=== PATIENT | female | born 1950 | race Caucasian/White ===

== ENCOUNTER 2016-05-13 18:36 | Emergency (ER) | payer OTHER ==
[~2016-05-13 18:36] MED LIST: ACCUNEB INH; ACETAMINOPHEN500 MG PO; ALBUTEROL 3 ML3 ML INH; ALBUTEROL1.25 MG/3 INH/SOL; ANTIVERT 25MG #1 PAC PO; ASPIR 8181 MG PO; ASPIRIN CHILDRE81 MG PO; ATORVASTATIN CA10 MG PO; AUGMENTIN 875 M1 TAB PO; AZELASTINE137 MCG/Ac NAS; BENZONATATE200 MG PO; BIAXIN FILMTAB500 MG PO; CALCIUM + D 5001 TAB PO; CEFDINIR300 M1 PO; CIPRO 500MG TA500 MG PO; CLINDAMYCIN HY300 MG PO; ECOTRIN81 MG PO; FLAG500 PO; FLAGYL500 MG PO; FLEXERIL 5MG TAB5 MG PO; FLONASE120 SPRAY/ NAS; HYCODAN 1.5 MG-1 TAB PO; HYGROTON 25MG T25 MG PO; KEFLEX250 M1 PO; LEVBID0.375 MG PO; LEVOTHYROXIN0.025 MG PO; LEVOTHYROXIN0.175 MG; LEVOTHYROXIN0.175 MG PO; LIORESAL 10MG T10 MG PO; LIPITOR10 MG PO; LOPRESSOR 25MG25 MG PO; LOSARTAN POTASS50 M1 PO; LOVAZA1 GM PO; MACROBID 100 M100 MG PO; MASON NATURAL325 MG PO; MEDROL4 M2 PO; METOPROLOL TART50 M1 PO; MIRALAX17 GM PO; MUCINEX ER600 MG PO; MUCINEX600 MG PO; Mucinex PO; NOVAPLUS V0.09 MG/Ac INH; OMNICEF300 MG PO; PEPCID20 MG PO; PREDNISONE 20MG20 MG PO; PREDNISONE10 MG PO; PROAIR HFA0.09 MG/Ac INH; PROTONIX 40MG T40 MG PO; PYRIDIUM200 M1 PO; ROBITUSSIN W/CO10 ML PO; SENNA CON/DOCUS1 TAB PO; STERAPRED DS10 MG PO; SUPRAX400 MG PO; SYMBICORT 160/41 PUF INH; Senokot S PO; TESSALON PERLE100 MG PO; VIBRAMYCIN 100100 MG PO; VITAB121000 PO; ZITHROMAX Z-PA250 M1 PO; ZOFRAN4 M1 SL; ZOFRAN4 M2 PO
[2016-05-13 19:20] VITALS: BP 128/82
--- NOTE | 2016-05-13 21:45 | ED UPPER/LOWER EXTREMITY COMPL ---
History of Present Illness General Chief Complaint: General Adult Stated Complaint: VINH ARTHRIS PAIN IN LEFT ARM RIGHT LEG Source: patient Exam Limitations: no limitations Vital Signs & Intake/Output Vital Signs & Intake/Output Vital Signs Date Time Temp Pulse Resp B/P Pulse O2 O2 Flow FiO2 Ox Delivery Rate 05/13 1920 98.6 67 16 128/82 96 Room Air ED Intake and Output 05/14 0000 05/13 1200 Intake Total 0 Output Total Balance 0 Intake, Oral 0 Allergies Coded Allergies: metronidazole (From FLAGYL) (Mild, hives 01/12/16) Penicillins (RASH 01/12/16) Sulfa (Sulfonamide Antibiotics) (HIVES 01/12/16) adhesive tape (RED, ITCHY 01/12/16) ciprofloxacin (From CIPRO) (HIVES 01/12/16) metoclopramide (From REGLAN) (PER PT DOES NOT REMEMBER 01/12/16) naproxen (PER PT DOESNT REMEMBER 01/12/16) oxycodone (RASH, BLOTCHES 01/12/16) promethazine (RASH, HIVES 01/12/16) sulfamethoxazole (From BACTRIM) (HIVES 01/12/16) sumatriptan (From IMITREX) (PT DOESNT REMEMBER 01/12/16) tramadol (FACIAL EDEMA 01/12/16) trimethoprim (From BACTRIM) (HIVES 01/12/16) Uncoded Allergies: ANTI-HISTAMINES (ACID REFLUX 03/01/15) Triage Note: TRIAGE; PT VINH FROM HOME WITH RT KNEE AND LT WRIST PAIN. PT STATES SHE HAS A HX OF ARTHRITIS. DENIES ANY INJURY TO THE AREA. PT TRIED USING HER ARTHRITIC CREAM WITH NO RELIEF. Triage Nurses Notes Reviewed? yes Onset: Gradual Duration: getting worse Timing: remote history Severity: severe Severity Numbers: 8 HPI: Patient is a 66-year-old female with a past medical history of arthritis who presents to emergency room with a 3 day history of gradual onset of left wrist right hip and right knee pain. Patient denies any mechanism injury denies any falls or repetitive motions. Patient states that she believes that her arthritis is "acting up on her". Denies any peripheral edema. Denies any paresthesia or weakness. Denies any erythema swelling or warmth. Patient has not taken any medications for symptom was brought in by ambulance for pain. Patient states that due to her arthritis she uses a cane with her left hand which makes her left wrist worse. (FLAKITA MARSHALL,GENARO) Reconcile Medications Albuterol Sulfate (Accuneb) 3 ML GRACIE 3 ML INH PRN RESPIRATORY (Reported) Albuterol Sulfate (Ventolin Hfa) 0.09 MG/Actuation GREGORY 1-2 PUFF INH Q6P PRN SOB Aspirin (Ecotrin) 81 MG ECT 1 TAB PO DAILY HEART/BLOOD (Reported) Atorvastatin Calcium (Lipitor) 10 MG TAB 1 TAB PO DAILY CHOLESTEROL (Reported ) Budesonide/Formoterol Fumara (Symbicort 160-4.5 Mcg Inhaler) 160 MCG/4.5 MCG PUF 2 PUF INH BID ASTHMA (Reported) Calcium/Vitamin D (Calcium + D) 500 MG/125 IU TAB 1 TAB PO BID SUPPLEMENT ( Reported) Cyanocobalamin (Vitamin B-12) 1,000 MCG TABLET 2 TAB PO DAILY VITAMIN SUPPLEMENT (Reported) Ferrous Sulfate 325 MG (65 MG IRON) TABLET 1 TAB PO BID SUPPLEMENT (Reported) Levothyroxine Sodium 0.175 MG TAB 1 TAB PO DAILY AC THYROID (Reported) Losartan Potassium 50 MG TABLET 1 TAB PO DAILY BP (Reported) Meloxicam (Mobic) 15 MG TABLET 1 TAB PO DAILY PRN PAIN/INFLAMMATION Metoprolol Tartrate 50 MG TABLET 1 TAB PO BID HEART (Reported) [id number] Ethyl Esters (Lovaza) 1 GRAM CAPSULE 2 CAP PO BID TRIGLYCERIDES (Reported) Ondansetron (Zofran Odt) 4 MG TAB.RAPDIS 1 TAB SL TID nausea Pantoprazole Sodium (Protonix) 40 MG TABLET.DR 1 TAB PO DAILY AC GI (Reported ) Polyethylene Glycol 3350 (Miralax) 17 GM PWD 17 GM PO DAILY GI (Reported) mix with water, juice, soda, coffee or tea Tylenol With Codeine (Tylenol With Codeine #3 Tablet) 300 MG-30 MG TABLET 1 TAB PO BIDP PRN PAIN (WESTON MONTALVO,DIONNA Fermin) Past History Travel History Traveled to [place] past 21 day No Medical History Any Pertinent Medical History? 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 No (GENARO SANDERS) Review of Systems Review of Systems Constitutional: Reports: no symptoms. EENTM: Reports: no symptoms. Respiratory: Reports: no symptoms. Cardiovascular: Reports: no symptoms. Gastrointestinal/Abdominal: Reports: no symptoms. Genitourinary: Reports: no symptoms. Musculoskeletal: Reports: see HPI, joint pain. Skin: Reports: no symptoms. Neurological/Psychological: Reports: no symptoms. Hematologic/Endocrine: Reports: no symptoms. Immunological: Reports: no symptoms. All Other Systems: Reviewed and Negative (GENARO SANDERS) Physical Exam Physical Exam General Appearance: no apparent distress, comfortable, obese Peripheral Pulses: 2+ radial (R), 2+ radial (L) Neurologic/Tendon: normal sensation, normal motor functions, normal tendon functions, responds to pain, no evidence tendon injury Skin: intact, normal color, warm/dry Comments: Well-developed well-nourished no apparent distress. HEENT: Atraumatic, extraocular motion intact Neck: Supple, no lymphadenopathy Back: Nontender Respiratory: No respiratory distress Extremities: Left elbow normal inspection nontender full active range of motion Left wrist normal inspection general point tenderness noted upon palpation, decreased active range of motion noted Left hand nontender no scaphoid tenderness Left upper extremity dermatomes intact Right hip normal inspection generalized point tenderness noted, full active range of motion noted Right knee normal inspection generalized point tenderness noted full active range of motion noted Normal gait Neuro: Alert and oriented x3 Psych: Mood affect normal, normal memory normal judgment. (GENARO SANDERS) Progress Differential Diagnosis: arterial insufficiency, compartment syndrome, contusion, dislocation, DVT, fracture, gout, septic arthritis, sprain, tendon injury, ARTHRITIS, GOUT Plan of Care: Patient at this time has no concerns of traumatic event denies any mechanism injury no signs of cellulitis or infection no concerns of septic arthritis. Patient was strongly advised to follow up with primary care doctor. Bacilio wrap was placed to right knee in which patient states that she had knee swelling none was appreciated in the emergency room. I sent this time has no traumatic event or mechanism which warrants an emergent x-ray (GENARO SANDERS) Departure Departure Disposition: HOME OR SELF CARE Condition: Stable Clinical Impression Primary Impression: Left wrist pain Secondary Impressions: Osteoarthritis, Right hip pain, Right knee pain Referrals: SUSAN QUEEN APRN (PCP/Family) Additional Instructions: As discussed began heating or icing the area 20 minutes every 2 hours for pain and inflammation. Begin a prescription of meloxicam for pain and inflammation. Begin the prescription Tylenol with Codeine for your pain. If no better on Thursday follow-up with her primary care doctor. If symptoms worsen return to the emergency room. Departure Forms: Customer Survey General Discharge Information Prescriptions: Current Visit Scripts Meloxicam (Mobic) 1 TAB PO DAILY PRN PAIN/INFLAMMATION #14 TAB Tylenol With Codeine (Tylenol With Codeine #3 Tablet) 1 TAB PO BIDP PRN PAIN #6 TAB (GENARO SANDERS)
[2016-05-13] MEDS ORDERED: MOBIC15 M1 PO (21:53)
[2016-05-13] MEDS ORDERED: TYLENOL WITH C1 EACH PO (21:53)
[2016-05-14] MEDS ORDERED: ZOFRAN ODT4 M1 SL (14:41)
== END 2016-05-13 22:10 ==
LOC: ERH 18:36
DX: M25.532 Pain in left wrist (principal); M25.551 Pain in right hip; M25.561 Pain in right knee; M19.90 Unspecified osteoarthritis, unspecified site

== ENCOUNTER 2016-05-14 10:51 | Emergency (ER) | payer OTHER ==
[~2016-05-14] VITALS: Ht 167.6 cm; Wt 127.0 kg
[~2016-05-14 10:51] MED LIST changes: +MOBIC15 M1 PO; +TYLENOL WITH C1 EACH PO
--- NOTE | 2016-05-14 11:40 | ED SYNCOPE COMPLAINT ---
History of Present Illness General Chief Complaint: General Adult Stated Complaint: NAUSEA S/P NEW MEDICINE Source: patient Exam Limitations: no limitations Vital Signs & Intake/Output Vital Signs & Intake/Output Vital Signs Date Time Temp Pulse Resp B/P Pulse O2 O2 Flow FiO2 Ox Delivery Rate 05/14 1416 98.8 65 18 147/69 95 Room Air 05/14 1058 97.6 70 24 110/63 96 Room Air Allergies Coded Allergies: metronidazole (From FLAGYL) (Mild, hives 01/12/16) Penicillins (RASH 01/12/16) Sulfa (Sulfonamide Antibiotics) (HIVES 01/12/16) adhesive tape (RED, ITCHY 01/12/16) ciprofloxacin (From CIPRO) (HIVES 01/12/16) metoclopramide (From REGLAN) (PER PT DOES NOT REMEMBER 01/12/16) naproxen (PER PT DOESNT REMEMBER 01/12/16) oxycodone (RASH, BLOTCHES 01/12/16) promethazine (RASH, HIVES 01/12/16) sulfamethoxazole (From BACTRIM) (HIVES 01/12/16) sumatriptan (From IMITREX) (PT DOESNT REMEMBER 01/12/16) tramadol (FACIAL EDEMA 01/12/16) trimethoprim (From BACTRIM) (HIVES 01/12/16) Uncoded Allergies: ANTI-HISTAMINES (ACID REFLUX 03/01/15) Reconcile Medications Albuterol Sulfate (Accuneb) 3 ML GRACIE 3 ML INH PRN RESPIRATORY (Reported) Albuterol Sulfate (Ventolin Hfa) 0.09 MG/Actuation GREGORY 1-2 PUFF INH Q6P PRN SOB Aspirin (Ecotrin) 81 MG ECT 1 TAB PO DAILY HEART/BLOOD (Reported) Atorvastatin Calcium (Lipitor) 10 MG TAB 1 TAB PO DAILY CHOLESTEROL (Reported ) Budesonide/Formoterol Fumara (Symbicort 160-4.5 Mcg Inhaler) 160 MCG/4.5 MCG PUF 2 PUF INH BID ASTHMA (Reported) Calcium/Vitamin D (Calcium + D) 500 MG/125 IU TAB 1 TAB PO BID SUPPLEMENT ( Reported) Cyanocobalamin (Vitamin B-12) 1,000 MCG TABLET 2 TAB PO DAILY VITAMIN SUPPLEMENT (Reported) Ferrous Sulfate 325 MG (65 MG IRON) TABLET 1 TAB PO BID SUPPLEMENT (Reported) Levothyroxine Sodium 0.175 MG TAB 1 TAB PO DAILY AC THYROID (Reported) Losartan Potassium 50 MG TABLET 1 TAB PO DAILY BP (Reported) Meloxicam (Mobic) 15 MG TABLET 1 TAB PO DAILY PRN PAIN/INFLAMMATION Metoprolol Tartrate 50 MG TABLET 1 TAB PO BID HEART (Reported) [id number] Ethyl Esters (Lovaza) 1 GRAM CAPSULE 2 CAP PO BID TRIGLYCERIDES (Reported) Ondansetron (Zofran Odt) 4 MG TAB.RAPDIS 1 TAB SL TID nausea Pantoprazole Sodium (Protonix) 40 MG TABLET.DR 1 TAB PO DAILY AC GI (Reported ) Polyethylene Glycol 3350 (Miralax) 17 GM PWD 17 GM PO DAILY GI (Reported) mix with water, juice, soda, coffee or tea Tylenol With Codeine (Tylenol With Codeine #3 Tablet) 300 MG-30 MG TABLET 1 TAB PO BIDP PRN PAIN Triage Note: PT CAME IN LAST NIGHT FOR LEFT WRIST AND RIGHT KNEE PAIN. PT WAS GIVEN MELOXICAM AND STATES SHE TOOK IT THIS MORNING AND VOMITED. PT STATES STILL HAS NAUSEA Triage Nurses Notes Reviewed? yes Timing: recent history HPI: 58-year-old female was here yesterday for left wrist pain. Patient has arthritis in her wrist. Patient was prescribed Tylenol with Codeine and meloxicam. Patient reports that this morning she took the meloxicam as well as Tylenol with Codeine. Patient reports that she became nauseous and vomited. Patient reports that she's for nausea since then and dizzy. Patient reports that she's had total with codeine many times before with no reaction. Denies any chest pain or shortness of breath. Denies any other associated symptoms at this time. (BARBY MORENO) Past History Travel History Traveled to [place] past 21 day No Medical History Any Pertinent Medical History? 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 No (BARBY MORENO) Review of Systems Review of Systems Constitutional: Reports: no symptoms. EENTM: Reports: no symptoms. Respiratory: Reports: no symptoms. Cardiovascular: Reports: no symptoms. GI: Reports: see HPI. Genitourinary: Reports: no symptoms. Musculoskeletal: Reports: no symptoms. Skin: Reports: no symptoms. Neurological/Psychological: Reports: no symptoms. All Other Systems: Reviewed and Negative (BARBY MORENO) Physical Exam Physical Exam General Appearance: well developed/nourished, no apparent distress, alert Head: atraumatic, normal appearance Eyes: Bilateral: normal appearance, EOMI. Ears, Nose, Throat: normal pharynx, normal ENT inspection Neck: normal inspection, full range of motion Respiratory: normal breath sounds, no respiratory distress Cardiovascular: regular rate/rhythm Back: normal inspection Extremities: normal inspection, normal range of motion Psychiatric: awake, alert, oriented x 3 Cranial Nerves: normal hearing, normal speech, PERRL Coordination/Gait: normal gait Motor/Sensory: no motor/sensory deficits Skin: intact, normal color Core Measures ACS in differential dx? No CVA/TIA Diagnosis: No Severe Sepsis Present: No Septic Shock Present: No (BARBY MORENO) Progress Differential Diagnosis: AMI, aortic dissection, aortic valve, drug induced syncope, hyperventilation, orthostatic syncope, other valvular disease, pacemaker malfunction, pericardial tamponade, pulmonary embolus, seizure, sick sinus syndrome, subarachnoid hem., TIA/CVA, vasodepressor syncope, ventricular tach/fib, medicationr eaction Plan of Care: Orders Procedure Date/time Status Add-on Test (ER Only) 05/14 1303 Active LIPASE 05/14 1200 Complete AMYLASE 05/14 1200 Complete TROPONIN LEVEL 05/14 1133 Complete COMPREHENSIVE METABOLIC PANEL 05/14 1133 Complete CBC WITHOUT DIFFERENTIAL 05/14 1133 Complete EKG 05/14 1133 Active Laboratory Tests 05/14/16 1200: Anion Gap 14, Estimated GFR 55 L, BUN/Creatinine Ratio 25.0, Glucose 106 H, Calcium 9.2, Total Bilirubin 1.9 H, AST 268 H, ALT 165 H, Alkaline Phosphatase 190 H, Troponin I < 0.01, Total Protein 6.4, Albumin 3.8, Globulin 2.6, Albumin/Globulin Ratio 1.5, Amylase < 30 L, Lipase 47, CBC w Diff NO MAN DIFF REQ, RBC 4.45, MCV 89.0, MCH 30.7, RDW 13.6, MPV 7.2 L, Gran % 80.3 H, Lymphocytes % 10.3 L, Monocytes % 9.0, Eosinophils % 0.4, Basophils % 0 L, Absolute Granulocytes 8.8 H, Absolute Lymphocytes 1.1 L, Absolute Monocytes 1.0 H, Absolute Eosinophils 0, Absolute Basophils 0, PUBS MCHC 34.5 Diagnostic Imaging: Viewed by Me: Ultrasound. Discussed w/RAD: Ultrasound. Radiology Impression: SERVICE DATE: 05/14/16 EXAM TYPE: US - US-LIMITED ABDOMEN EXAMINATION: US ABDOMEN LIMITED CLINICAL INFORMATION: Elevated LFTs. Vomiting.. COMPARISON: Abdominal ultrasound 03/26/2016, CT abdomen pelvis 2015 and abdominal ultrasound 08/16/2015. TECHNIQUE: Real-time imaging of the right upper quadrant abdominal viscera. Examination limited secondary to patient body habitus and overlying bowel gas. FINDINGS: PANCREAS: Overlying bowel gas limits evaluation of the pancreas. Minimal portions of the pancreas which were visualized were unremarkable. LIVER: The liver demonstrates normal size and contour. Mild diffusely increased liver echogenicity is nonspecific but most suggestive of hepatic steatosis. No focal lesion or intrahepatic biliary duct dilatation. GALLBLADDER: The gallbladder has been surgically removed. COMMON BILE DUCT: 0.9 cm in diameter. RIGHT KIDNEY: No hydronephrosis. No renal calculi or focal parenchymal lesions. The kidney measures 11.0 cm in maximum dimension. FREE FLUID: None. IMPRESSION: 1. Mild diffusely increased liver echogenicity is nonspecific but most suggestive of hepatic steatosis. 2. The common bile duct measures 9 mm in diameter. This is a stable finding and likely within normal limits given history of cholecystectomy. DICTATED BY: CORINA LEE MD DATE/ TIME DICTATED:05/14/16 1343 Comments: 05/14/2016 3:46:24 PM Patient clinically looks well. Nontoxic-appearing. In no apparent distress. Resting comfortably on stretcher. No abdominal pain. No fever here. No suspicion for cholangitis at this time. Patient has some elevated LFTs which are new. Patient needs to have these followed by her GI dr. Case discussed with Dr. recinos. Patient feels absolutely fine upon discharge is asymptomatic and wants to go home. Patient requesting to eat food. I feel that the patient had an adverse reaction to the meloxicam. Patient has had Tylenol with Codeine in the past with no reaction. I feel that the blood work abnormalities are nonspecific finding and can be followed up as an outpatient. Patient agrees with my plan of care. (SYLWIA MARSHALL,BARBY) Departure Departure Disposition: HOME OR SELF CARE Condition: Stable Clinical Impression Primary Impression: Adverse reaction to drug Secondary Impressions: Elevated liver function tests Referrals: SUSAN QUEEN APRN (PCP/Family) Additional Instructions: Take Zofran ODT as prescribed. Have your liver function test retested by ear GI doctor. Return if any high fever, abdominal pain, persistent vomiting, or any other concerns. Please go over all results of today's visit with your primary care doctor. Contact your primary care doctor to let them know you were here in the emergency room. There may be nonspecific findings which may not be related to your visit today here in the emergency room but may require further evaluation and chronic monitoring by your primary care doctor. If you had a laceration today the chance of foreign body always remains. You should follow-up with your primary care doctor for recheck in 3-5 days for a wound check. If you had an x-ray done there is a chance that a fracture could have been missed on initial read and you should follow-up with your primary care doctor for repeat x-rays if symptoms persist. If your blood pressure was elevated here in the emergency room please have rechecked by her primary care doctor within the next 48 hours by your primary care doctor. If you were prescribed a narcotic here in the emergency room or any type of controlled substances you're not allowed to drive while taking this medication or operate any type of heavy machinery. Narcotics can make you feel lightheaded dizziness nausea and can cause constipation. You may need to fern picker a stool softener. Thank you for choosing [facility] emergency room. Please return to the emergency room immediately if you have any other concerns worsening of symptoms. Departure Forms: Customer Survey General Discharge Information Prescriptions: Current Visit Scripts Ondansetron (Zofran Odt) 1 TAB SL TID #15 TAB (BARBY MORENO) PA/HOME HEALTH TRAVEL PT Co-Sign Statement Statement: ED Attending supervision documentation- [X] I saw and evaluated the patient. I have also reviewed all the pertinent lab results and diagnostic results. I agree with the findings and the plan of care as documented in the PA's/HOME HEALTH TRAVEL PT's documentation. [X] I have reviewed the ED Record and agree with the PA's/HOME HEALTH TRAVEL PT's documentation. [] Additions or exceptions (if any) to the PAs/HOME HEALTH TRAVEL PT's note and plan are summarized below: [] (PAIGE MONTALVO,DENICE)
[2016-05-14 12:12] LABS: ABSOLUTE BASOPHIL COUNT 0 /CUMM (0.0-0.2); ABSOLUTE EOSINOPHIL COUNT 0 /CUMM (0.0-0.7); ABSOLUTE GRANULOCYTE CT 8.8 /CUMM (1.4-6.5); ABSOLUTE LYMPH COUNT 1.1 /CUMM (1.2-3.4); BASOPHIL % 0 % (0.0-2.0); EOSINOPHIL % 0.4 % (0-5); GRANULOCYTE % 80.3 % (42.2-75.2); HEMATOCRIT 39.5 % (37-47); MEAN CORPUSCULAR HGB 30.7 PG (27.0-31.0); MEAN CORPUSCULAR HGB CONC 34.5 G/DL (33.0-37.0); MEAN PLATELET VOLUME 7.2 FL (7.4-10.4); PLATELET COUNT 262 /CUMM (130-400); RBC DISTRIBUTION WIDTH 13.6 % (11.5-14.5); RED BLOOD CELL CT 4.45 /CUMM (4.20-5.40); WHITE BLOOD CELL COUNT 10.9 /CUMM (4.8-10.8)
--- NOTE | 2016-05-14 13:50 | ULTRASOUND REPORT ---
EXAMINATION: US ABDOMEN LIMITED CLINICAL INFORMATION: Elevated LFTs. Vomiting.. COMPARISON: Abdominal ultrasound 03/26/2016, CT abdomen pelvis 12/11/2015 and abdominal ultrasound 08/16/2015. TECHNIQUE: Real-time imaging of the right upper quadrant abdominal viscera. Examination limited secondary to patient body habitus and overlying bowel gas. FINDINGS: PANCREAS: Overlying bowel gas limits evaluation of the pancreas. Minimal portions of the pancreas which were visualized were unremarkable. LIVER: The liver demonstrates normal size and contour. Mild diffusely increased liver echogenicity is nonspecific but most suggestive of hepatic steatosis. No focal lesion or intrahepatic biliary duct dilatation. GALLBLADDER: The gallbladder has been surgically removed. COMMON BILE DUCT: 0.9 cm in diameter. RIGHT KIDNEY: No hydronephrosis. No renal calculi or focal parenchymal lesions. The kidney measures 11.0 cm in maximum dimension. FREE FLUID: None. IMPRESSION: 1. Mild diffusely increased liver echogenicity is nonspecific but most suggestive of hepatic steatosis. 2. The common bile duct measures 9 mm in diameter. This is a stable finding and likely within normal limits given history of cholecystectomy.
[2016-05-14 14:16] VITALS: BP 147/69
[2016-05-14] MEDS ORDERED: ZOFRAN ODT4 M1 SL (14:41)
== END 2016-05-14 14:59 ==
LOC: ERH 10:51
PROVIDERS: Physician Assistant Medical
DX: T39.95XA Adverse effect of unspecified nonopioid analgesic, antipyretic and antirheumatic, initial encounter (principal); R79.89 Other specified abnormal findings of blood chemistry; R42 Dizziness and giddiness
CPT/HCPCS: 93005; 93010; J3101

== ENCOUNTER 2016-05-30 13:43 | Emergency (ER) | payer OTHER ==
[~2016-05-30] VITALS: Ht 167.6 cm; Wt 127.0 kg
[~2016-05-30 13:43] MED LIST changes: +ZOFRAN ODT4 M1 SL
[2016-05-30] MEDS ORDERED: MEDROL4 M2 PO (16:34)
[2016-05-30] MEDS ORDERED: ZITHROMAX250 M2 PO (16:34)
[2016-05-30] MEDS ORDERED: TESSALON PERLE100 M1 PO (16:34)
--- NOTE | 2016-05-30 16:34 | ED GENERAL ADULT ---
History of Present Illness General Chief Complaint: Nausea, Vomiting, Diarrhea Stated Complaint: N/V/D HEAD COLD Source: patient Exam Limitations: no limitations Vital Signs & Intake/Output Vital Signs & Intake/Output Vital Signs Date Time Temp Pulse Resp B/P Pulse O2 O2 Flow FiO2 Ox Delivery Rate 05/30 1439 98.3 67 18 112/75 93 Room Air Allergies Coded Allergies: metronidazole (From FLAGYL) (Mild, hives 01/12/16) Penicillins (RASH 01/12/16) Sulfa (Sulfonamide Antibiotics) (HIVES 01/12/16) adhesive tape (RED, ITCHY 01/12/16) ciprofloxacin (From CIPRO) (HIVES 01/12/16) metoclopramide (From REGLAN) (PER PT DOES NOT REMEMBER 01/12/16) naproxen (PER PT DOESNT REMEMBER 01/12/16) oxycodone (RASH, BLOTCHES 01/12/16) promethazine (RASH, HIVES 01/12/16) sulfamethoxazole (From BACTRIM) (HIVES 01/12/16) sumatriptan (From IMITREX) (PT DOESNT REMEMBER 01/12/16) tramadol (FACIAL EDEMA 01/12/16) trimethoprim (From BACTRIM) (HIVES 01/12/16) Uncoded Allergies: ANTI-HISTAMINES (ACID REFLUX 03/01/15) Triage Note: C/O HEAD CONGESTION WITH COUGH, EAR PAIN AND SORE THROAT X 3 DAYS. ALSO C/O NAUSEA FROM POST NASAL DRAINAGE. Triage Nurses Notes Reviewed? yes Onset: Gradual Duration: day(s): (3) Timing: recent history Injury Environment: home Severity: moderate Severity Numbers: 8 No Modifying Factors: none HPI: Patient is a 66-year-old female presenting to the emergency department a chief complaint of upper respiratory congestion, sinus pain and pressure and dry cough that the going on for the past 3-4 days. History of asthma. She's been using her nebulizer without relief. Denies any chest pain or shortness of breath. Denies any abdominal pain. No nausea vomiting or diarrhea. Someone she lives with has similar symptoms. No travel. Denies recent antibiotic use. Positive the bilateral ear pain. (DENZEL MARSHALL,LEONORA) Reconcile Medications Albuterol Sulfate (Accuneb) 3 ML GRACIE 3 ML INH PRN RESPIRATORY (Reported) Albuterol Sulfate (Ventolin Hfa) 0.09 MG/Actuation GREGORY 1-2 PUFF INH Q6P PRN SOB Aspirin (Ecotrin) 81 MG ECT 1 TAB PO DAILY HEART/BLOOD (Reported) Atorvastatin Calcium (Lipitor) 10 MG TAB 1 TAB PO DAILY CHOLESTEROL (Reported ) Azithromycin (Zithromax) 250 MG TABLET 1 DP PO AD BRONCHITIS 2 the first day followed by 1 for days 2-5 Benzonatate (Tessalon Perle) 100 MG CAPSULE 1 CAP PO TID PRN COUGH Budesonide/Formoterol Fumara (Symbicort 160-4.5 Mcg Inhaler) 160 MCG/4.5 MCG PUF 2 PUF INH BID ASTHMA (Reported) Calcium/Vitamin D (Calcium + D) 500 MG/125 IU TAB 1 TAB PO BID SUPPLEMENT ( Reported) Cyanocobalamin (Vitamin B-12) 1,000 MCG TABLET 2 TAB PO DAILY VITAMIN SUPPLEMENT (Reported) Ferrous Sulfate 325 MG (65 MG IRON) TABLET 1 TAB PO BID SUPPLEMENT (Reported) Levothyroxine Sodium 0.175 MG TAB 1 TAB PO DAILY AC THYROID (Reported) Losartan Potassium 50 MG TABLET 1 TAB PO DAILY BP (Reported) Meloxicam (Mobic) 15 MG TABLET 1 TAB PO DAILY PRN PAIN/INFLAMMATION Methylprednisolone. (Medrol) 4 MG TAB.DS.PK 1 DP PO AD BRONCHITIS 6 on day 1 then reduce by one tablet daily until gone Metoprolol Tartrate 50 MG TABLET 1 TAB PO BID HEART (Reported) Dyhgr-4-Gldy Ethyl Esters (Lovaza) 1 GRAM CAPSULE 2 CAP PO BID TRIGLYCERIDES (Reported) Ondansetron (Zofran Odt) 4 MG TAB.RAPDIS 1 TAB SL TID nausea Pantoprazole Sodium (Protonix) 40 MG TABLET.DR 1 TAB PO DAILY AC GI (Reported ) Polyethylene Glycol 3350 (Miralax) 17 GM PWD 17 GM PO DAILY GI (Reported) mix with water, juice, soda, coffee or tea Tylenol With Codeine (Tylenol With Codeine #3 Tablet) 300 MG-30 MG TABLET 1 TAB PO BIDP PRN PAIN (WESTON MONTALVO,DIONNA Fermin) Past History Travel History Traveled to [place] past 21 day No Medical History Any Pertinent Medical History? 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 EENT: NONE Cardiovascular: hypertension, hyperlipidemia, CARDIOVASCULAR DISEASE Respiratory: asthma Gastrointestinal: diverticulitis, GERD, DIVERTICULOSIS Hepatic: NONE Renal: NONE Musculoskeletal: osteoarthritis, leg swelling Psychiatric: anxiety Endocrine: hypothyroidism Blood Disorders: ANEMIADD Cancer(s): BREAST CA RIGHT IN REMISSION [employer]/Reproductive: NONE History of MRSA: No History of VRE: No History of CDIFF: No Tetanus Vaccine: 05/02/12 Surgical History Surgical History: R BREAST LUMPECTOMY,CHOLY R KNEE REPL,HERNIA,TONSIL PARTIAL HYSTERECTOMY Psychosocial History Who do you live with 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 No (LEONORA WOLFF) Review of Systems Review of Systems Constitutional: Reports: malaise. Comments Review of systems: See HPI, All other systems negative. Constitutional, no chills fever or weight loss HEENT: No visual changes Cardiovascular: No chest pain ,palpitation , orthopnea or ankle swelling Skin, no jaundice no rashes Respiratory: No dyspnea sputum or hemoptysis GI: No nausea no vomiting : No dysuria No hematuria Muscle skeletal: no back pain, no neck pain, Neurologic: No numbness no confusion Psych: No stress anxiety or depression,. Immunology: No splenectomy or history of AIDS (LEONORA WOLFF) Physical Exam Physical Exam General Appearance: well developed/nourished, no apparent distress, alert, awake , comfortable Comments: Well-developed well-nourished person in no acute distress HEENT: Pupils equally round and reactive to light and accommodation. Nose is atraumatic. External auditory canal clear bilaterally, tympanic membranes are itching, nonerythematous. Patient over the maxillary sinuses bilaterally. Clear nasal discharge present. Pharynx is erythematous, no exudate, no tonsillar enlargement. No swelling or edema. Neck: Supple, no lymphadenopathy, normal range of motion without pain or tenderness Back: Nontender, no CVA tenderness. Full range of motion Cardiovascular: Regular rate and rhythms no murmurs rubs or gallops, normal JVP Respiratory: Chest nontender. No respiratory distress.breath sounds clear to auscultation bilaterally. Dry reactive cough on exam. Extremity: No edema Neuro: Alert oriented x3 Skin: No appreciable rash on exposed skin, skin is warm and dry. Psych: Mood and affect is normal, memory and judgment is normal. Core Measures ACS in differential dx? No CVA/TIA Diagnosis: No Severe Sepsis Present: No Septic Shock Present: No (LEONORA WOLFF) Progress Differential Diagnoses I considered the following diagnoses in my evaluation of the patient: Sinusitis , upper respiratory infection, bronchitis, pneumonia, viral syndrome Plan of Care: Patient likely has sinusitis and bronchitis. Patient will be treated with antibiotics, cough medication, steroids. She will follow with her PCP. Patient nontoxic. Vitals are stable. Initial ED EKG: none (LEONORA WOLFF) Departure Departure Time of Disposition: 1631 Disposition: HOME OR SELF CARE Condition: Stable Clinical Impression Primary Impression: Sinusitis Qualifiers: Sinusitis location: maxillary Chronicity: acute Recurrence: not specified as recurrent Qualified Code: J01.00 - Acute maxillary sinusitis, unspecified Secondary Impressions: Bronchitis Referrals: SUSAN QUEEN APRN (PCP/Family) Additional Instructions: Follow-up with your primary care physician: U pointing. Increase fluids. Take antibiotics and cough medication as prescribed. Use steroids as directed. Return for worsening symptoms or concerns. Departure Forms: Customer Survey General Discharge Information Prescriptions: Current Visit Scripts Benzonatate (Tessalon Perle) 1 CAP PO TID PRN COUGH #30 CAP Methylprednisolone. 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 I have also reviewed all the pertinent lab results and diagnostic results. I agree with the findings and the plan of care as documented in the PA's/AUTOMOBILE UPHOLSTERER APPRENTICE's documentation. [] I have reviewed the ED Record and agree with the PA's/AUTOMOBILE UPHOLSTERER APPRENTICE's documentation. [] Additions or exceptions (if any) to the PAs/AUTOMOBILE UPHOLSTERER APPRENTICE's note and plan are summarized below: [] (WESTON MONTALVO,DIONNA Fermin) Critical Care Note Critical Care Note Critical Care Time: non-applicable (LEONORA WOLFF)
[2016-05-30 16:59] VITALS: BP 115/75
== END 2016-05-30 16:59 ==
LOC: ERH 13:43
DX: J32.9 Chronic sinusitis, unspecified (principal); J40 Bronchitis, not specified as acute or chronic

== ENCOUNTER 2016-06-07 19:19 | Emergency (ER) | payer OTHER, MEDICARE ==
[~2016-06-07] VITALS: Ht 167.6 cm; Wt 127.0 kg
[~2016-06-07 19:19] MED LIST changes: +TESSALON PERLE100 M1 PO; +ZITHROMAX250 M2 PO
--- NOTE | 2016-06-07 19:55 | ED DYSPNEA/ASTHMA COMPLAINT ---
History of Present Illness General Chief Complaint: Dyspnea (COPD, CHF, Other) Stated Complaint: SOB Source: patient, family, old records, EMS Exam Limitations: no limitations Vital Signs & Intake/Output Vital Signs & Intake/Output Vital Signs Date Time Temp Pulse Resp B/P Pulse O2 O2 Flow FiO2 Ox Delivery Rate 06/07 2124 98.7 66 18 119/65 95 Room Air 06/07 1924 99.0 78 20 116/79 93 Room Air Allergies Coded Allergies: metronidazole (From FLAGYL) (Mild, hives 01/12/16) Penicillins (RASH 01/12/16) Sulfa (Sulfonamide Antibiotics) (HIVES 01/12/16) adhesive tape (RED, ITCHY 01/12/16) ciprofloxacin (From CIPRO) (HIVES 01/12/16) metoclopramide (From REGLAN) (PER PT DOES NOT REMEMBER 01/12/16) naproxen (PER PT DOESNT REMEMBER 01/12/16) oxycodone (RASH, BLOTCHES 01/12/16) promethazine (RASH, HIVES 01/12/16) sulfamethoxazole (From BACTRIM) (HIVES 01/12/16) sumatriptan (From IMITREX) (PT DOESNT REMEMBER 01/12/16) tramadol (FACIAL EDEMA 01/12/16) trimethoprim (From BACTRIM) (HIVES 01/12/16) Uncoded Allergies: ANTI-HISTAMINES (ACID REFLUX 03/01/15) Reconcile Medications Albuterol Sulfate (Accuneb) 3 ML GRACIE 3 ML INH PRN RESPIRATORY (Reported) Albuterol Sulfate (Ventolin Hfa) 0.09 MG/Actuation GREGORY 1-2 PUFF INH Q6P PRN SOB Aspirin (Ecotrin) 81 MG ECT 1 TAB PO DAILY HEART/BLOOD (Reported) Atorvastatin Calcium (Lipitor) 10 MG TAB 1 TAB PO DAILY CHOLESTEROL (Reported ) Azithromycin (Zithromax) 250 MG TABLET 1 DP PO AD bronchitis 2 the first day followed by 1 for days 2-5 Azithromycin (Zithromax) 250 MG TABLET 1 DP PO AD BRONCHITIS 2 the first day followed by 1 for days 2-5 Benzonatate (Tessalon Perle) 100 MG CAPSULE 1 CAP PO TID PRN COUGH Budesonide/Formoterol Fumara (Symbicort 160-4.5 Mcg Inhaler) 160 MCG/4.5 MCG PUF 2 PUF INH BID ASTHMA (Reported) Calcium/Vitamin D (Calcium + D) 500 MG/125 IU TAB 1 TAB PO BID SUPPLEMENT ( Reported) Cyanocobalamin (Vitamin B-12) 1,000 MCG TABLET 2 TAB PO DAILY VITAMIN SUPPLEMENT (Reported) Ferrous Sulfate 325 MG (65 MG IRON) TABLET 1 TAB PO BID SUPPLEMENT (Reported) Guaifenesin/Dextromethorphan (Robitussin Cough-Chest Dm Liq) 200 MG-10 MG/5 ML LIQUID 10 ML PO Q6P PRN cough Levothyroxine Sodium 0.175 MG TAB 1 TAB PO DAILY AC THYROID (Reported) Losartan Potassium 50 MG TABLET 1 TAB PO DAILY BP (Reported) Meloxicam (Mobic) 15 MG TABLET 1 TAB PO DAILY PRN PAIN/INFLAMMATION Methylprednisolone. (Medrol) 4 MG TAB.DS.PK 1 DP PO AD BRONCHITIS 6 on day 1 then reduce by one tablet daily until gone Metoprolol Tartrate 50 MG TABLET 1 TAB PO BID HEART (Reported) Mfmaq-1-[id number] Ethyl Esters (Lovaza) 1 GRAM CAPSULE 2 CAP PO BID TRIGLYCERIDES (Reported) Ondansetron (Zofran Odt) 4 MG TAB.RAPDIS 1 TAB SL TID nausea Pantoprazole Sodium (Protonix) 40 MG TABLET.DR 1 TAB PO DAILY AC GI (Reported ) Polyethylene Glycol 3350 (Miralax) 17 GM PWD 17 GM PO DAILY GI (Reported) mix with water, juice, soda, coffee or tea Prednisone 20 MG TABLET 1 TAB PO BID bronchitis Tylenol With Codeine (Tylenol With Codeine #3 Tablet) 300 MG-30 MG TABLET 1 TAB PO BIDP PRN PAIN Core Measure Meds Pre-Hospital aspirin Triage Note: BIBA C/O INCREASING SOB FOR PAST COUPLE OF DAYS Triage Nurses Notes Reviewed? yes Onset: Last week Duration: day(s):, continues in ED, waxing and waning Timing: recent history Severity: moderate Activities at Onset: none Prior Episodes/Possible Cause: frequent episodes, illness exposure Modifying Factors: Improves With: rest. Worsens With: movement. Associated Symptoms: cough, wheezing, weakness LMP (ages 10-50): post menopausal : No Patient currently breastfeeds: No HPI: 1 week prior to admission patient complains of nausea and decreased appetite productive cough wheezing fatigue. She continues to smoke. She denies fever chills chest pain headache dysuria rash bleeding. Past History Travel History Traveled to [place] past 21 day No Medical History Any Pertinent Medical History? 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 No Review of Systems Review of Systems Constitutional: Reports: no symptoms. EENTM: Reports: see HPI, nasal congestion. Respiratory: Reports: see HPI, cough, short of breath, wheezing. Cardiovascular: Reports: no symptoms. GI: Reports: no symptoms. Genitourinary: Reports: no symptoms. Musculoskeletal: Reports: no symptoms. Skin: Reports: no symptoms. Neurological/Psychological: Reports: no symptoms. Hematologic/Endocrine: Reports: no symptoms. Immunologic/Allergic: Reports: no symptoms. All Other Systems: Reviewed and Negative Physical Exam Physical Exam General Appearance: well developed/nourished, alert, awake, anxious, mild distress, obese Head: atraumatic, normal appearance Eyes: Bilateral: normal appearance, PERRL, EOMI. Ears, Nose, Throat: nasal congestion Neck: normal inspection, supple, full range of motion, no midline tenderness Respiratory: chest non-tender, no respiratory distress, quiet respiration, decreased breath sounds Cardiovascular: regular rate/rhythm, normal peripheral pulses, norml femoral pulses equa Peripheral Pulses: 4+ carotid (R), 4+ carotid (L) Gastrointestinal: normal bowel sounds, soft, non-tender, no organomegaly Extremities: normal inspection, normal capillary refill Neurologic/Psych: no motor/sensory deficits, awake, alert, oriented x 3, normal gait, normal mood/affect Skin: intact, normal color, warm/dry Lymphatic: adenopathy Core Measures ACS in differential dx? No Severe Sepsis Present: No Septic Shock Present: No Progress Differential Diagnosis: asthma, bronchitis, COPD, pneumonia Plan of Care: Orders Procedure Date/time Status EKG 06/07 1919 Active Diagnostic Imaging: Viewed by Me: Radiology Read. Discussed w/RAD: Radiology Read. CXR Impression: no acute abnormality Initial ED EKG: normal sinus rhythm, RBBB, no ST T wave changes Prior EKG: unchanged Rhythm Strip: normal sinus rhythm Departure Departure Time of Disposition: 2157 Disposition: HOME OR SELF CARE Condition: Stable Clinical Impression Primary Impression: Bronchitis Referrals: SUSAN QUEEN APRN (PCP/Family) Departure Forms: Customer Survey General Discharge Information Prescriptions: Current Visit Scripts Prednisone 1 TAB PO BID #10 TAB Azithromycin (Zithromax) 1 DP PO AD #6 TAB 2 the first day followed by 1 for days 2-5 Guaifenesin/Dextromethorphan (Robitussin Cough-Chest Dm Liq) 10 ML PO Q6P PRN cough #240 ML Critical Care Note Critical Care Note Critical Care Time: non-applicable
[2016-06-07 21:25] VITALS: BP 119/65
--- NOTE | 2016-06-07 21:48 | RADIOLOGY REPORT ---
EXAMINATION: XR CHEST CLINICAL INFORMATION: Cough. COMPARISON: 07/11/2015 TECHNIQUE: 2 views of the chest were obtained. FINDINGS: Clips right axilla. No significant abnormality is noted involving the heart, lungs, mediastinum, bony thorax or soft tissues. IMPRESSION: Unremarkable examination.
[2016-06-07] MEDS ORDERED: PREDNISONE20 M1 PO (21:59)
[2016-06-07] MEDS ORDERED: ZITHROMAX250 M2 PO (21:59)
[2016-06-07] MEDS ORDERED: ROBITUSSIN COU118 M1 PO (22:00)
== END 2016-06-07 22:11 ==
LOC: ERH 19:19
DX: J40 Bronchitis, not specified as acute or chronic (principal); F17.200 Nicotine dependence, unspecified, uncomplicated
CPT/HCPCS: 1263; 93005; 93010

== ENCOUNTER 2016-06-14 13:04 | Emergency (ER) | payer OTHER, MEDICARE ==
[~2016-06-14] VITALS: Ht 167.6 cm; Wt 127.0 kg
[~2016-06-14 13:04] MED LIST changes: +PREDNISONE20 M1 PO; +ROBITUSSIN COU118 M1 PO
--- NOTE | 2016-06-14 14:05 | ED INFLUENZA/URI COMPLAINT ---
History of Present Illness General Chief Complaint: Upper Respiratory Sx/Fever Stated Complaint: URI/SOB Source: patient Exam Limitations: no limitations Vital Signs & Intake/Output Vital Signs & Intake/Output Vital Signs Date Time Temp Pulse Resp B/P Pulse O2 O2 Flow FiO2 Ox Delivery Rate 06/14 1311 97.9 72 20 123/80 95 Room Air Allergies Coded Allergies: metronidazole (From FLAGYL) (Mild, hives 01/12/16) Penicillins (RASH 01/12/16) Sulfa (Sulfonamide Antibiotics) (HIVES 01/12/16) adhesive tape (RED, ITCHY 01/12/16) ciprofloxacin (From CIPRO) (HIVES 01/12/16) metoclopramide (From REGLAN) (PER PT DOES NOT REMEMBER 01/12/16) naproxen (PER PT DOESNT REMEMBER 01/12/16) oxycodone (RASH, BLOTCHES 01/12/16) promethazine (RASH, HIVES 01/12/16) sulfamethoxazole (From BACTRIM) (HIVES 01/12/16) sumatriptan (From IMITREX) (PT DOESNT REMEMBER 01/12/16) tramadol (FACIAL EDEMA 01/12/16) trimethoprim (From BACTRIM) (HIVES 01/12/16) Uncoded Allergies: ANTI-HISTAMINES (ACID REFLUX 03/01/15) Reconcile Medications Albuterol Sulfate (Accuneb) 3 ML GRACIE 3 ML INH PRN RESPIRATORY (Reported) Albuterol Sulfate (Ventolin Hfa) 0.09 MG/Actuation GREGORY 1-2 PUFF INH Q6P PRN SOB Aspirin (Ecotrin) 81 MG ECT 1 TAB PO DAILY HEART/BLOOD (Reported) Atorvastatin Calcium (Lipitor) 10 MG TAB 1 TAB PO DAILY CHOLESTEROL (Reported ) Azithromycin (Zithromax) 250 MG TABLET 1 DP PO AD bronchitis 2 the first day followed by 1 for days 2-5 Azithromycin (Zithromax) 250 MG TABLET 1 DP PO AD BRONCHITIS 2 the first day followed by 1 for days 2-5 Benzonatate (Tessalon Perle) 100 MG CAPSULE 1 CAP PO TID PRN COUGH Budesonide/Formoterol Fumara (Symbicort 160-4.5 Mcg Inhaler) 160 MCG/4.5 MCG PUF 2 PUF INH BID ASTHMA (Reported) Calcium/Vitamin D (Calcium + D) 500 MG/125 IU TAB 1 TAB PO BID SUPPLEMENT ( Reported) Cyanocobalamin (Vitamin B-12) 1,000 MCG TABLET 2 TAB PO DAILY VITAMIN SUPPLEMENT (Reported) Ferrous Sulfate 325 MG (65 MG IRON) TABLET 1 TAB PO BID SUPPLEMENT (Reported) Guaifenesin/Dextromethorphan (Robitussin Cough-Chest Dm Liq) 200 MG-10 MG/5 ML LIQUID 10 ML PO Q6P PRN cough Levothyroxine Sodium 0.175 MG TAB 1 TAB PO DAILY AC THYROID (Reported) Losartan Potassium 50 MG TABLET 1 TAB PO DAILY BP (Reported) Meloxicam (Mobic) 15 MG TABLET 1 TAB PO DAILY PRN PAIN/INFLAMMATION Methylprednisolone. (Medrol) 4 MG TAB.DS.PK 1 DP PO AD BRONCHITIS 6 on day 1 then reduce by one tablet daily until gone Metoprolol Tartrate 50 MG TABLET 1 TAB PO BID HEART (Reported) Zausy-6-[id number] Ethyl Esters (Lovaza) 1 GRAM CAPSULE 2 CAP PO BID TRIGLYCERIDES (Reported) Ondansetron (Zofran Odt) 4 MG TAB.RAPDIS 1 TAB SL TID nausea Pantoprazole Sodium (Protonix) 40 MG TABLET.DR 1 TAB PO DAILY AC GI (Reported ) Polyethylene Glycol 3350 (Miralax) 17 GM PWD 17 GM PO DAILY GI (Reported) mix with water, juice, soda, coffee or tea Prednisone 20 MG TABLET 1 TAB PO BID bronchitis Tylenol With Codeine (Tylenol With Codeine #3 Tablet) 300 MG-30 MG TABLET 1 TAB PO BIDP PRN PAIN Triage Note: RECEIVED 66 YO FEMALE BIBA WITH C/O DIFFICULTY BREATHING X 2 WEEKS. LUNGS CTA BILAT. O2 SATS 95% IN TRIAGE. OCCASIONAL DRY COUGH NOTED. Triage Nurses Notes Reviewed? yes HPI: 66-year-old female arrived through triage to [facility] for evaluation of a cough and congestion that she has had for 2 weeks. She is also complaining of shortness of breath on exertion. She denies any chest pain or pressure. She has been evaluated in the emergency department twice and has been given antibiotics, steroids and cough medicine with no relief. She reports that she has been having fever and chills but has not taken her temperature. She denies any nausea, vomiting, diarrhea, abdominal pain, lightheadedness, dizziness. She reports that she feels malaise and fatigue. She has not seen her primary care provider. When asked she denies tobacco use but she does smell of cigarettes. When asked if someone in her home smokes she said she didn't know. Denies any pain at this time. She reports she has sputum production but it's white and stringy. June 07 chest x-ray was negative. (LENORE MONTOYA APRN) Past History Travel History Traveled to [place] past 21 day No Medical History Any Pertinent Medical History? 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 No (LENORE MONTOYA APRN) Review of Systems Review of Systems Constitutional: Reports: malaise, weakness. EENTM: Denies: no symptoms. Respiratory: Reports: cough, short of breath, sputum production. Cardiovascular: Denies: no symptoms. GI: Denies: no symptoms. Genitourinary: Denies: no symptoms. Musculoskeletal: Denies: no symptoms. Skin: Denies: no symptoms. Neurological/Psychological: Denies: no symptoms. Hematologic/Endocrine: Denies: no symptoms. Immunologic/Allergic: Denies: no symptoms. (LENORE MONTOYA APRN) Physical Exam Physical Exam General Appearance: well developed/nourished, alert, awake, mild distress Head: atraumatic, normal appearance Eyes: Bilateral: normal appearance, PERRL, EOMI. Ears, Nose, Throat: normal ENT inspection, moist mucous membrane, pharynx normal Neck: normal inspection, supple, full range of motion Respiratory: normal breath sounds, chest non-tender, no respiratory distress, quiet respiration Cardiovascular: regular rate/rhythm Peripheral Pulses: 2+ radial (R), 2+ radial (L) Gastrointestinal: normal bowel sounds, soft, non-tender Back: normal inspection, normal range of motion Extremities: normal inspection, normal capillary refill, normal range of motion Neurologic/Psych: no motor/sensory deficits, awake, alert, oriented x 3, normal gait, normal mood/affect Skin: intact, normal color, warm/dry Core Measures Severe Sepsis Present: No Septic Shock Present: No (LINDSAY HORTA,LENORE) Progress Differential Diagnosis: pneumonia, bronchitis, COPD exacerbation Plan of Care: Orders Procedure Date/time Status EKG 06/14 1442 Active TROPONIN LEVEL 06/14 140 Complete COMPREHENSIVE METABOLIC PANEL 06/14 140 Complete CBC WITHOUT DIFFERENTIAL 06/14 140 Complete Laboratory Tests 06/14/16 1512: Anion Gap 10, Estimated GFR > 60, BUN/Creatinine Ratio 32.2 H, Glucose 78, Calcium 9.3, Total Bilirubin 1.7 H, AST 16, ALT 33, Alkaline Phosphatase 93, Troponin I < 0.01, Total Protein 6.5, Albumin 3.8, Globulin 2.7, Albumin/ Globulin Ratio 1.4, CBC w Diff MAN DIFF ORDERED, RBC 4.92, MCV 89.6, MCH 30.2, RDW 13.7, MPV 7.4, Gran % 77.2 H, Lymphocytes % 14.8 L, Monocytes % 6.5, Eosinophils % 1.1, Basophils % 0.4, Absolute Granulocytes 14.5 H, Absolute Lymphocytes 2.8, Absolute Monocytes 1.2 H, Absolute Eosinophils 0.2, Absolute Basophils 0.1, Platelet Estimate ADEQUATE, Poikilocytosis 1+, Stomatocytes 1+, PUBS MCHC 33.7 Diagnostic Imaging: Viewed by Me: Radiology Read. Discussed w/RAD: Radiology Read. CXR Impression: no acute abnormality, no infiltrates Initial ED EKG: normal sinus rhythm rate 64 with a left bundle branch block no change from previous Prior EKG: unchanged Comments: PATIENT: YESSY LUGO PRESENT AGE: 66 PATIENT ACCOUNT NO: [id number] : 48 LOCATION: [facility] ORDERING PHYSICIAN: LENORE MONTOYA APRN SERVICE DATE: 06/14/16-9136 EXAM TYPE: RAD - XRY-CHEST XRAY, PA AND LATERAL EXAMINATION: XR CHEST CLINICAL INFORMATION: Shortness of breath. Cough. COMPARISON: Chest done on 06/07/2016. TECHNIQUE: 2 views, 3 images of the chest were obtained. FINDINGS: Both lung lane are symmetrically expanded and appear clear. The cardiomediastinal silhouette is within normal limits. There is no pleural effusion present. The visualized upper abdomen is unremarkable. Postsurgical changes are noted projecting over the right axilla, similar to prior study. IMPRESSION: No acute cardiopulmonary disease. Specifically, no radiographic evidence of pneumonia or CHF. No significant change since 06/07/2016. DICTATED BY: GURINDER PELAEZ MD DATE/TIME DICTATED:06/14/161508 INSTALLER TECHNICIAN:MELITON DATE/TIME TRANSCRIBED:06/14/161508 CONFIDENTIAL, DO NOT COPY WITHOUT APPROPRIATE AUTHORIZATION. <Electronically signed in Other Vendor System> SIGNED BY: GURINDER PELAEZ MD 06/14/161516 Repeat chest x-ray today was negative. I explained blood work results, EKG to Yessy and explained that this is chronic bronchitis and that she needs to follow back up with Dr. Alvarado or her primary care provider. I also explained to her the need that somebody in her family needs to stop smoking. She should continue nebulizers and inhalers that she already has at home. White blood cell count elevated due to steroid use over the past month. Bilirubin elevated to 1.7 but one month ago was 1.9 and liver enzymes are back to normal. Ultrasound of her abdomen was done at that time which was negative for CBD stone. Case discussed with Dr. richardson. (LENORE MONTOYA APRN) Departure Departure Time of Disposition: 1626 Disposition: HOME OR SELF CARE Condition: Stable Clinical Impression Primary Impression: Bronchitis Referrals: SUSAN QUEEN APRN (PCP/Family) Additional Instructions: Please follow-up with your primary care this week. Please advise family members to stop smoking. Follow up also with Dr. Box if cough continues despite using nebulizer, inhalers and 2 doses of antibiotics along with steroids. Use Mucinex over-the- counter for phlegm production and [id number] cough medicine. Continue inhalers and nebulizers as directed. Departure Forms: Customer Survey General Discharge Information (LENORE MONTOYA APRN) PA/MOSS PICKER Co-Sign Statement Statement: ED Attending supervision documentation- x I saw and evaluated the patient. I have also reviewed all the pertinent lab results and diagnostic results. I agree with the findings and the plan of care as documented in the PA's/MOSS PICKER's documentation. [] I have reviewed the ED Record and agree with the PA's/MOSS PICKER's documentation. [] Additions or exceptions (if any) to the PAs/MOSS PICKER's note and plan are summarized below: [] (ART MONTALVO,SHENA)
--- NOTE | 2016-06-14 15:17 | RADIOLOGY REPORT ---
EXAMINATION: XR CHEST CLINICAL INFORMATION: Shortness of breath. Cough. COMPARISON: Chest done on 06/07/2016. TECHNIQUE: 2 views, 3 images of the chest were obtained. FINDINGS: Both lung lane are symmetrically expanded and appear clear. The cardiomediastinal silhouette is within normal limits. There is no pleural effusion present. The visualized upper abdomen is unremarkable. Postsurgical changes are noted projecting over the right axilla, similar to prior study. IMPRESSION: No acute cardiopulmonary disease. Specifically, no radiographic evidence of pneumonia or CHF. No significant change since 06/07/2016.
[2016-06-14 15:20] LABS: ABSOLUTE BASOPHIL COUNT 0.1 /CUMM (0.0-0.2); ABSOLUTE EOSINOPHIL COUNT 0.2 /CUMM (0.0-0.7); ABSOLUTE GRANULOCYTE CT 14.5 /CUMM (1.4-6.5); ABSOLUTE LYMPH COUNT 2.8 /CUMM (1.2-3.4); ABSOLUTE MONOCYTE COUNT 1.2 /CUMM (0.10-0.60); BASOPHIL % 0.4 % (0.0-2.0); EOSINOPHIL % 1.1 % (0-5); GRANULOCYTE % 77.2 % (42.2-75.2); MEAN CORPUSCULAR HGB 30.2 PG (27.0-31.0); MEAN CORPUSCULAR HGB CONC 33.7 G/DL (33.0-37.0); MEAN CORPUSCULAR VOLUME 89.6 FL (81.0-99.0); MEAN PLATELET VOLUME 7.4 FL (7.4-10.4); PLATELET COUNT 282 /CUMM (130-400); RBC DISTRIBUTION WIDTH 13.7 % (11.5-14.5); RED BLOOD CELL CT 4.92 /CUMM (4.20-5.40); WHITE BLOOD CELL COUNT 18.8 /CUMM (4.8-10.8)
[2016-06-14 17:55] VITALS: BP 124/74
== END 2016-06-14 17:56 ==
LOC: ERH 13:04
PROVIDERS: Nurse Practitioner Family
DX: J40 Bronchitis, not specified as acute or chronic (principal)
CPT/HCPCS: 93005; 93010

== ENCOUNTER 2016-10-05 05:44 | Emergency (ER) | payer OTHER, MEDICARE ==
[~2016-10-05] VITALS: Ht 167.6 cm; Wt 127.9 kg
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
[2016-10-05] MEDS ORDERED: CYCLOBENZAPRINE10 M1 PO (07:09)
[2016-10-05 07:39] VITALS: BP 132/64
== END 2016-10-05 08:23 ==
LOC: ERH 05:44
DX: S16.1XXA Strain of muscle, fascia and tendon at neck level, initial encounter (principal); X58.XXXA Exposure to other specified factors, initial encounter; Y92.9 Unspecified place or not applicable; Y93.9 Activity, unspecified
CPT/HCPCS: J3360

== ENCOUNTER 2017-06-18 15:39 | Observation (INO) | payer OTHER, MEDICARE ==
[~2017-06-18] VITALS: Ht 167.6 cm; Wt 128.1 kg
[~2017-06-18 15:39] MED LIST changes: +ASPIRIN EC81 M1 PO; -ATORVASTATIN CA10 MG PO; -CALCIUM + D 5001 TAB PO; +CALCIUM + D SO1 EACH PO; +CYCLOBENZAPRINE10 M1 PO; -ECOTRIN81 MG PO; +FERROUS SULFAT325 M3 PO; -LEVOTHYROXIN0.175 MG PO; +LEVOTHYROXINE175 MCG PO; +LIPITOR10 M1 PO; +LOVAZA1 G1 PO; -LOVAZA1 GM PO; -MASON NATURAL325 MG PO; +MIRALAX17 G1 PO; -MIRALAX17 GM PO; -PROTONIX 40MG T40 MG PO; +PROTONIX40 M3 PO; -SYMBICORT 160/41 PUF INH; +SYMBICORT 16010.2 GM INH; +VIBRAMYCIN100 MG PO; -VITAB121000 PO; +VITAMIN B-122000 MC1 PO
--- NOTE | 2017-06-18 15:57 | ED CARDIAC/CP/PALPITATIONS ---
History of Present Illness General Chief Complaint: Chest Pain Stated Complaint: BIBA FOR CHEST PAIN Source: patient, old records, EMS Exam Limitations: no limitations Vital Signs & Intake/Output Vital Signs & Intake/Output Vital Signs Date Time Temp Pulse Resp B/P B/P Pulse O2 O2 Flow FiO2 Mean Ox Delivery Rate 06/19 1242 Room Air Room Air 06/19 1050 98.0 59 18 128/71 95 Room Air 06/19 0900 98.2 70 18 139/65 06/19 0900 98.2 70 18 139/65 06/19 0840 98.2 70 18 139/65 92 Room Air 06/19 0621 97.6 65 18 130/71 95 Room Air 06/19 0009 98.3 58 20 141/73 94 Room Air 06/18 2212 97.8 64 18 154/76 97 Room Air 06/18 1959 65 20 159/74 96 Room Air 06/18 1831 97.7 62 18 155/78 98 Room Air 06/18 1830 Room Air 06/18 1701 97.6 61 20 147/81 96 Room Air ED Intake and Output 06/19 0000 06/18 1200 Intake Total 480 Output Total Balance 480 Intake, Oral 480 Allergies Coded Allergies: metronidazole (From FLAGYL) (Mild, hives 01/12/16) Penicillins (RASH 01/12/16) Sulfa (Sulfonamide Antibiotics) (HIVES 01/12/16) adhesive tape (RED, ITCHY 01/12/16) ciprofloxacin (From CIPRO) (HIVES 01/12/16) metoclopramide (From REGLAN) (PER PT DOES NOT REMEMBER 01/12/16) naproxen (PER PT DOESNT REMEMBER 01/12/16) oxycodone (RASH, BLOTCHES 01/12/16) promethazine (RASH, HIVES 01/12/16) sulfamethoxazole (From BACTRIM) (HIVES 01/12/16) sumatriptan (From IMITREX) (PT DOESNT REMEMBER 01/12/16) tramadol (FACIAL EDEMA 01/12/16) trimethoprim (From BACTRIM) (HIVES 01/12/16) Uncoded Allergies: ANTI-HISTAMINES (ACID REFLUX 03/01/15) Reconcile Medications Albuterol Sulfate 2.5 MG/3 ML (0.083 %) VIAL.NEB 1 Vial INH/GRACIE AD PRN ASTHMA (Reported) Albuterol Sulfate (Ventolin Hfa) 90 MCG HFA.AER.AD 1-2 PUF INH AD PRN ASTHMA (Reported) Aspirin (Ecotrin*) 81 MG TABLET.DR 1 TAB PO DAILY HEART/BLOOD (Reported) Atorvastatin Calcium (Lipitor) 10 MG TABLET 1 TAB PO DAILY CHOLESTEROL ( Reported) Budesonide/Formoterol Fumarate (Symbicort 160-4.5 Mcg Inhaler) 160 MCG-4.5 MCG/ ACTUATION HFA.AER.AD 2 PUF INH BID ASTHMA (Reported) Calcium Carb/Vitamin D3/Vit K1 (Calcium + D Soft Chewable Tab) 500 MG CALCIUM-1, 000 UNIT-40 MCG TAB.CHEW 1 TAB PO BID SUPPLEMENT (Reported) Cyanocobalamin (Vitamin B-12) (Vitamin B-12) 2,000 MCG TABLET 1 TAB PO DAILY SUPPLEMENT (Reported) Ferrous Sulfate 325 MG (65 MG IRON) TABLET 1 TAB PO BID SUPPLEMENT (Reported) Levothyroxine Sodium 175 MCG TABLET 1 TAB PO DAILY THYROID (Reported) Losartan Potassium 50 MG TABLET 1 TAB PO DAILY BP (Reported) Metoprolol Tartrate 50 MG TABLET 1 TAB PO BID HEART (Reported) Wagner-3 Acid Ethyl Esters (Lovaza) 1 GRAM CAPSULE 2 CAP PO BID CHOLESTEROL/ TRIGLYCERIDES (Reported) Pantoprazole Sodium (Protonix) 40 MG TABLET.DR 1 TAB PO DAILY GI (Reported) Polyethylene Glycol 3350 (Miralax) 17 GRAM POWD.PACK 1 PAC PO DAILY GI ( Reported) dissolve in water Triage Nurses Notes Reviewed? yes Onset: Abrupt Duration: day(s): (1), constant, getting worse Timing: recent history Quality/Severity: moderate Location: left sided Radiation: sternal notch Activities at Onset: none Prior Chest Pain/Card Workup: heart attack Nitro Today/Relief: no nitro taken today Aspirin Today: 81 mg x 4, provided by EMS Associated Symptoms: denies HPI: 67 year old female with past medical history significant of asthma, hypothyroidism, hyperlipidemia, hypertension, infiltrating breast cancer and right-sided diagnosing 2000 status post sentinel lymph node biopsy and chemoradiation presents to the ER for evaluation status post developing sudden onset left-sided chest pain when she awoke this morning and has been constant and getting worse. Patient was given 4 aspirin in route. Symptoms were worse with exertion. Pain is radiating into her sternum she denies any arm or jaw neck or back pain. Her kiln burner is Dr. Neely. Pain nausea vomiting or diarrhea. (Kishan Bridges) Past History Travel History Traveled to [place] past 21 day No Medical History Any Pertinent Medical History? 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 No (Kishan Bridges) Review of Systems Review of Systems Constitutional: Reports: no symptoms, see HPI. Comments Review of systems: See HPI, All other systems negative. Constitutional, no chills no fever, HEENT: no sore throat no congestion Cardiovascular: chest pain , no palpitation Skin: no rashes, no change in skin Respiratory: No dyspnea no cough no sputum GI: No nausea no vomiting, no diarrhea : No dysuria Muscle skeletal: No joint pain, no back pain, no neck pain, Neurologic: , no headache Psych: No stress Heme/endocrine: No bruising Immunology: No lymphadenopathy (Kishan Bridges) Physical Exam Physical Exam General Appearance: well developed/nourished, alert, awake Cardiovascular: regular rate/rhythm Comments: Well-developed well-nourished person in no acute distress HEENT: Normal EENT exam; PERRL, EOMI, no nystagmus. HEAD is atraumatic. moist mucous membranes. Neck: Supple, no lymphadenopathy, normal range of motion without pain or tenderness Back: Nontender, no CVA tenderness. Full range of motion Cardiovascular: Regular rate and rhythms no murmurs rubs or gallops, normal JVP Respiratory: Chest nontender.There were no bony deformities, no asymmetry. No respiratory distress. Patient speaking in full complete sentences. Breath sounds clear to auscultation bilaterally: NO W/R/R Abdomen: Soft, nontender nondistended, no appreciable organomegaly. Normal bowel sounds. No rebound/guarding, No appreciable enlargement of the abdominal aorta, No ascites. Extremity: No edema, full range of motion of extremities, normal and equal pulses bilaterally, 5 out of 5 strength noted to bilateral upper and lower extremities Neuro: Alert oriented x3, motor sensory normal, cranial nerves II through XII grossly intact. There were no obvious focal neurologic abnormalities. Skin: No appreciable rash on exposed skin, skin is warm and dry. Psych: Mood and affect is normal, memory and judgment is normal. Core Measures ACS in differential dx? Yes CVA/TIA Diagnosis No Sepsis Present: No Sepsis Focused Exam Completed? No (Zaheer MARSHALL,Kishan) Progress Differential Diagnosis: AMI, aortic dissection, atrial fibrillation, CHF/pulm edema, costochondritis, myocarditis, pericarditis, pneumonia, pneumothorax, pulmonary embolism, unstable angina, V-fib/V-Tach Plan of Care: Orders Procedure Date/time Status Heart Healthy Diet 06/19 B Active RT: Evaluation 06/19 1242 Active Change service to 06/19 0848 Active TROPONIN LEVEL 06/19 0700 Complete MAGNESIUM 06/19 0700 Complete BASIC ELECTROLYTES PLUS BUN&CR 06/19 0700 Complete EKG 06/19 0700 Active LIPASE 06/19 0106 Complete TROPONIN LEVEL 06/19 0100 Complete EKG 06/19 0100 Active Lab Add-on Test 06/19 UNK Active ECHOCARDIOGRAM 06/19 UNK Active Code Status 06/18 2100 Active Pathway - chart 06/18 2020 Active Patient Data 06/[address] in observation 06/18 193 Active Misc Message 06/18 1939 Active ED Holding Orders 06/18 1939 Active Vital Signs 06/18 1939 Active Code Status 06/18 1939 Complete D-DIMER 06/18 1628 Complete XRY-PORTABLE CHEST XRAY 06/18 1609 Active Saline Lock 06/18 1552 Active Telemetry/Computer Forensics Technician 06/18 1543 Active TROPONIN LEVEL 06/18 1543 Complete MAGNESIUM 06/18 1543 Complete COMPREHENSIVE METABOLIC PANEL 06/18 1543 Complete CBC WITHOUT DIFFERENTIAL 06/18 1543 Complete B-TYPE NATRIURETIC PEP (BNP) 06/18 1543 Complete EKG 06/18 1541 Active TRC EVALUATION (GEN) 06/18 UNK Complete House Staff 06/18 UNK Active Lab Add-on Test 06/18 UNK Active VTE Mechanical Prophylaxis 06/18 UNK Active Vital Signs 06/18 UNK Active Intake & Output 06/18 UNK Active Current Medications Sig/Jennifer Start time Last Medication Dose Stop Time Status Admin Aspirin Buffered 81 MG DAILY 06/19 1000 AC 06/19 (Ecotrin) 0900 Losartan Potassium 50 MG DAILY 06/19 1000 AC 06/19 (Cozaar) 0900 Polyethylene Glycol 17 GM DAILY 06/19 1000 AC 06/19 (Miralax) 0900 Levothyroxine Sodium 0.175 MG DAILY AC 06/19 0700 AC 06/19 (Synthroid) 0655 Omeprazole 40 MG DAILY AC 06/19 0700 AC 06/19 (Prilosec) 0655 Lidocaine 1 PAT DAILY 06/18 2330 AC 06/19 (Lidoderm) 0900 Acetaminophen 650 MG Q4P PRN 06/18 2300 AC 06/19 (Tylenol) 1055 Atorvastatin Calcium 40 MG 1700 06/18 2245 AC 06/18 (Lipitor) 2235 Cyclobenzaprine HCl 5 MG BID PRN 06/18 2230 AC (Flexeril 5MG Tab) Budesonide/ 2 PUF BID 06/18 2200 AC 06/19 Formoterol Fumarate 0900 (Symbicort) Calcium 600 MG BID 06/18 2200 AC 06/19 (Calcium Carbonate 0900 600 MG Tab) Ferrous Sulfate 325 MG BID 06/18 2200 AC 06/19 (Feosol) 0900 Fish Oil 2,100 MG BID 06/18 2200 AC 06/19 (Wagner-3) 0900 Heparin Sodium 5,000 UNIT Q8 06/18 2200 AC 06/19 (Porcine) 0655 Metoprolol Tartrate 50 MG BID 06/18 2200 AC 06/19 (Lopressor) 0900 Albuterol Sulfate 2 PUF Q4-6 PRN PRN 06/18 2100 AC (Ventolin) Laboratory Tests 06/19/17 0650: Anion Gap 10, Estimated GFR > 60, BUN/Creatinine Ratio 28.8 H, Magnesium 1.9, Troponin I < 0.01 06/19/17 0106: Troponin I < 0.01, Lipase 112 06/18/17 2235: D-Dimer High Sensitivty Cancelled 06/18/17 1928: Anion Gap 11, Estimated GFR > 60, BUN/Creatinine Ratio 24.4, Glucose 94, Calcium 9.4, Magnesium 1.8, Total Bilirubin 1.2, AST 20, ALT 30, Alkaline Phosphatase 89 , Troponin I < 0.01, Tee-A-Ztcvrqnnzfl Pept 77.8, Total Protein 6.5, Albumin 4.1 , Globulin 2.4, Albumin/Globulin Ratio 1.7 06/18/17 1628: D-Dimer High Sensitivty 293 H, CBC w Diff NO MAN DIFF REQ, RBC 4.55, MCV 89.7, MCH 29.8, MCHC 33.2, RDW 13.7, MPV 7.8, Gran % 70.7, Lymphocytes % 20.1 L, Monocytes % 7.2, Eosinophils % 1.8, Basophils % 0.2, Absolute Granulocytes 7.3 H, Absolute Lymphocytes 2.1, Absolute Monocytes 0.7 H, Absolute Eosinophils 0.2 , Absolute Basophils 0 Labs ordered old records reviewed patient is medicated aspirin in route by EMS medic unit nitroglycerin sublingual here with resolution of symptoms. Case discussed with Dr. bush- agrees with plan Case discussed with Dr. Neely agrees with plan. Dr. Bush spoke with the hospitalist will place in telemetry observation chest pain Diagnostic Imaging: Viewed by Me: Radiology Read. Discussed w/RAD: Radiology Read. Initial ED EKG: normal p-waves, normal QRS complex, normal sinus rhythm, LBBB Prior EKG: unchanged (02/2017) Rhythm Strip: normal sinus rhythm (Kishan Bridges) Departure Departure Time of Disposition: 1844 Disposition: STILL A PATIENT Condition: Stable Clinical Impression Primary Impression: Chest pain Qualifiers: Chest pain type: other chest pain Qualified Code: R07.89 - Other chest pain Referrals: Etelvina Guerrier APRN (PCP/Family) Departure Forms: Customer Survey General Discharge Information Observation Note Spoke With: Georgia Dyer MD Physician Advisor Notified: MARGRET MONTALVO,GAURAV [address] Patient In: Non-ED OBS Care Area Rationale for Observation: My rational for observation is as follows CARDIOLOGY CONSULT, TREND LABS AND TROPONIN, TELE MONITORING, PREMATURE DISCHARGE WOULD BE MEDICALLY HARMFUL (Kishan Bridges) PA/WALLPAPER PRINTER HELPER Co-Sign Statement Statement: ED Attending supervision documentation- [x] I saw and evaluated the patient. I have also reviewed all the pertinent lab results and diagnostic results. I agree with the findings and the plan of care as documented in the PA's/WALLPAPER PRINTER HELPER's documentation. [] I have reviewed the ED Record and agree with the PA's/WALLPAPER PRINTER HELPER's documentation. [] Additions or exceptions (if any) to the PAs/WALLPAPER PRINTER HELPER's note and plan are summarized below: [] (Eleazar LINDER,Lefty Juarez) Critical Care Note Critical Care Note Critical Care Time: non-applicable (Kishan Bridges)
[2017-06-18 17:05] LABS: ABSOLUTE BASOPHIL COUNT 0 /CUMM (0.0-0.2); ABSOLUTE EOSINOPHIL COUNT 0.2 /CUMM (0.0-0.7); ABSOLUTE GRANULOCYTE CT 7.3 /CUMM (1.4-6.5); ABSOLUTE LYMPH COUNT 2.1 /CUMM (1.2-3.4); ABSOLUTE MONOCYTE COUNT 0.7 /CUMM (0.10-0.60); BASOPHIL % 0.2 % (0.0-2.0); EOSINOPHIL % 1.8 % (0-5); GRANULOCYTE % 70.7 % (42.2-75.2); HEMATOCRIT 40.8 % (37-47); MEAN CORPUSCULAR HGB 29.8 PG (27.0-31.0); MEAN CORPUSCULAR HGB CONC 33.2 G/DL (33.0-37.0); MEAN CORPUSCULAR VOLUME 89.7 FL (81.0-99.0); MEAN PLATELET VOLUME 7.8 FL (7.4-10.4); PLATELET COUNT 273 /CUMM (130-400); RBC DISTRIBUTION WIDTH 13.7 % (11.5-14.5); RED BLOOD CELL CT 4.55 /CUMM (4.20-5.40); WHITE BLOOD CELL COUNT 10.4 /CUMM (4.8-10.8)
[2017-06-18] MEDS ORDERED: ALBUTEROL2.5 MG/3 M INH/SOL (20:06)
[2017-06-18] MEDS ORDERED: VENTOLIN HFA18 GM INH (20:06)
--- NOTE | 2017-06-18 20:11 | History & Physical ---
Ashley Bautista MD 06/18/17 2009: General Information and HPI History of Present Illness: 67-year-old female with past medical history of Hypertension, hyperlipidemia, asthma, diverticulitis, GERD, osteoarthritis, anxiety, hypothyroidism infiltrating right breast cancer diagnosed in 2000 status post chemoradiation came to [facility] with complaints of left-sided sharp chest pain of 10 x 10 in intensity with no radiation and not relieved by rest or any medication. Apparently patient was in her usual state of health until today morning, woke up with 10 x 10 pain in the left side of the chest. 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 She denies any shortness of breath, palpitation, fever, chills, sick contacts, lifting heavy weight, travel, nausea, vomiting, abdominal pain, recent infection, weakness, altered sensation, fall. Patient endorses chronic cough related to her asthma. Patient also complains of right thigh size bigger than the left for the past 1 year. Patient says her pain didn't get relieved following aspirin or nitroglycerin. At baseline patient uses cane for ambulation at home. She got her flu shot this January 2017. She has a nurse to help with her medication. Past surgical history Right breast carcinoma status post lumpectomy and chemoradiation, her last mammogram was normal, cholecystectomy, right knee replacement, a medical hernia repair hysterectomy. Allergies/Medications Allergies: Coded Allergies: metronidazole (From FLAGYL) (Mild, hives 01/12/16) Penicillins (RASH 01/12/16) Sulfa (Sulfonamide Antibiotics) (HIVES 01/12/16) adhesive tape (RED, ITCHY 01/12/16) ciprofloxacin (From CIPRO) (HIVES 01/12/16) metoclopramide (From REGLAN) (PER PT DOES NOT REMEMBER 01/12/16) naproxen (PER PT DOESNT REMEMBER 01/12/16) oxycodone (RASH, BLOTCHES 01/12/16) promethazine (RASH, HIVES 01/12/16) sulfamethoxazole (From BACTRIM) (HIVES 01/12/16) sumatriptan (From IMITREX) (PT DOESNT REMEMBER 01/12/16) tramadol (FACIAL EDEMA 01/12/16) trimethoprim (From BACTRIM) (HIVES 01/12/16) Uncoded Allergies: ANTI-HISTAMINES (ACID REFLUX 03/01/15) Home Med list Albuterol Sulfate 2.5 MG/3 ML (0.083 %) VIAL.NEB 1 Vial INH/GRACIE AD PRN ASTHMA (Reported) Albuterol Sulfate (Ventolin Hfa) 90 MCG HFA.AER.AD 1-2 PUF INH AD PRN ASTHMA (Reported) Aspirin (Ecotrin*) 81 MG TABLET.DR 1 TAB PO DAILY HEART/BLOOD (Reported) Atorvastatin Calcium (Lipitor) 10 MG TABLET 1 TAB PO DAILY CHOLESTEROL ( Reported) Budesonide/Formoterol Fumarate (Symbicort 160-4.5 Mcg Inhaler) 160 MCG-4.5 MCG/ ACTUATION HFA.AER.AD 2 PUF INH BID ASTHMA (Reported) Calcium Carb/Vitamin D3/Vit K1 (Calcium + D Soft Chewable Tab) 500 MG CALCIUM-1, 000 UNIT-40 MCG TAB.CHEW 1 TAB PO BID SUPPLEMENT (Reported) Cyanocobalamin (Vitamin B-12) (Vitamin B-12) 2,000 MCG TABLET 1 TAB PO DAILY SUPPLEMENT (Reported) Ferrous Sulfate 325 MG (65 MG IRON) TABLET 1 TAB PO BID SUPPLEMENT (Reported) Levothyroxine Sodium 175 MCG TABLET 1 TAB PO DAILY THYROID (Reported) Losartan Potassium 50 MG TABLET 1 TAB PO DAILY BP (Reported) Metoprolol Tartrate 50 MG TABLET 1 TAB PO BID HEART (Reported) [place]-3 Acid Ethyl Esters (Lovaza) 1 GRAM CAPSULE 2 CAP PO BID CHOLESTEROL/ TRIGLYCERIDES (Reported) Pantoprazole Sodium (Protonix) 40 MG TABLET.DR 1 TAB PO DAILY GI (Reported) Polyethylene Glycol 3350 (Miralax) 17 GRAM POWD.PACK 1 PAC PO DAILY GI ( Reported) dissolve in water Compliance With Home Meds: FAIR Past History Travel History Traveled to [place] past 21 day No Medical History Neurological: migraine, 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 EENT: NONE Cardiovascular: hypertension, hyperlipidemia, CARDIOVASCULAR DISEASE Respiratory: asthma Gastrointestinal: diverticulitis, GERD, DIVERTICULOSIS Hepatic: NONE Renal: NONE Musculoskeletal: osteoarthritis, leg swelling Psychiatric: anxiety Endocrine: hypothyroidism Blood Disorders: ANEMIADD Cancer(s): 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 [facility] Who Do You Live With? spouse, child Services at Home: Nursing Primary Language: Kinyarwanda Smoking Status: Never Smoked ETOH Use: denies use Living Will? unknown Functional Ability ADLs Independent: dressing, eating, toileting, bathing. Ambulation: cane IADLs Needs Assist: shopping, housework, finances, food prep, telephone, transportation, medication admin. Review of Systems Review of Systems Constitutional: Reports: no symptoms. Cardiovascular: Reports: chest pain. Respiratory: Reports: no symptoms. GI: Reports: abdominal pain. Genitourinary: Reports: no symptoms. Musculoskeletal: Reports: no symptoms. Skin: Reports: no symptoms. Exam & Diagnostic Data Last 24 Hrs of Vital Signs/I&O Vital Signs Date Time Temp Pulse Resp B/P B/P Pulse O2 O2 Flow FiO2 Mean Ox Delivery Rate 06/19 0009 98.3 58 20 141/73 94 Room Air 06/18 2212 97.8 64 18 154/76 97 Room Air 06/18 1959 65 20 159/74 96 Room Air 06/18 1831 97.7 62 18 155/78 98 Room Air 06/18 1830 Room Air 06/18 1701 97.6 61 20 147/81 96 Room Air Intake & Output 06/19 0800 06/19 0000 06/18 1600 Intake Total 480 Output Total Balance 480 Intake, Oral 480 Physical Exam General Appearance Alert, Oriented X3, Cooperative, No Acute Distress Skin No Rashes, No Breakdown HEENT PERRLA, EOMI Cardiovascular Normal S1, Normal S2, No Murmurs, chest pain reproducible on palpation Lungs Clear to Auscultation, Normal Air Movement Abdomen Soft, No Tenderness, No Hepatospenomegaly Neurological Normal Speech, Strength at 5/5 X4 Ext, Normal Tone, Sensation Intact Extremities rt thigh greater than left thigh. Last 24 Hrs of Labs/Buzz: Laboratory Tests 06/19/17 0106: Troponin I Pending 06/18/175: D-Dimer High Sensitivty Cancelled 06/18/178: Anion Gap 11, Estimated GFR > 60, BUN/Creatinine Ratio 24.4, Glucose 94, Calcium 9.4, Magnesium 1.8, Total Bilirubin 1.2, AST 20, ALT 30, Alkaline Phosphatase 89 , Troponin I < 0.01, Uyz-Q-Onbrivrphiv Pept 77.8, Total Protein 6.5, Albumin 4.1 , Globulin 2.4, Albumin/Globulin Ratio 1.7 06/18/171627: D-Dimer High Sensitivty 293 H, CBC w Diff NO MAN DIFF REQ, RBC 4.55, MCV 89.7, MCH 29.8, MCHC 33.2, RDW 13.7, MPV 7.8, Gran % 70.7, Lymphocytes % 20.1 L, Monocytes % 7.2, Eosinophils % 1.8, Basophils % 0.2, Absolute Granulocytes 7.3 H, Absolute Lymphocytes 2.1, Absolute Monocytes 0.7 H, Absolute Eosinophils 0.2 , Absolute Basophils 0 Diagnostic Data EKG Results EKG sinus rhythm, left bundle branch block, first-degree AV block, QTC 458 Assessment/Plan Assessment: 67-year-old female with past medical history of Hypertension, hyperlipidemia, asthma, diverticulitis, GERD, osteoarthritis, anxiety, hypothyroidism infiltrating right breast cancer diagnosed in 2000 status post chemoradiation came to [facility] ER with complaints of left-sided sharp chest pain of 10 x 10 in intensity with no radiation and not relieved by rest or any medication. Patient observed in telemetry. Admission vitals Temperature 97.7, pulse rate 62, respiratory rate 20, blood pressure 150/70, saturating at 98 room air. Admission labs WBC 10.4, hemoglobin 13.5, platelet 273, sodium 137, potassium 4.6, BUNs 22, creatinine 0.9 troponin 0.01, proBNP 77.8 Echocardiogram 2014 Ejection fraction 60-65% with no regional wall motion abnormalities ED treatment Nitroglycerin 0.4 mg sublingual. 1. Chest pain likely muscular given the reproducibility of the pain. Her initial set of troponins negative. Pain medication - lidocaine patch to help with the chest pain, cardiology consult in a.m. We will trend troponins and EKG. Chest x-ray in the morning. 2. We will take bilateral lower extremity Doppler to rule out any DVT though highly unlikely given that the patient wells score is 1 and her right leg swollen compared to the left leg has been going on for more than a year now, also the cancer is not active now. 3. We will continue all her home medication. Continue statin. Code-full code Diet-heart healthy diet As Ranked By This Provider Problem List: 1. Chest pain Qualifiers Chest pain type: other chest pain Qualified Code: R07.89 - Other chest pain Core Measures/Misc (01/18) Acute Coronary Syndrome ACS Diagnosis: No Congestive Heart Failure Congestive Heart Failure Diagnosis No Cerebrovascular Accident CVA/TIA Diagnosis: No VTE (View Protocol) VTE Risk Factors Age>40 No Mechanical VTE Prophylaxis d/t Other No VTE Pharm Prophylaxis d/t Other Sepsis (View protocol) Sepsis Present: No Marie Wakefield 06/18/17 2016: Resident Review Statement Resident Statement: examined this patient, discussed with staff internist office based only, agreed with staff internist office based only, discussed with family, reviewed EMR data (avail), discussed with nursing , discussed with case mgmt, reviewed images, amended to note Other Findings: 67-year-old female with a past medical history of COPD, hypertension, hypothyroidism, infiltrating R breast cancer diagnosed in 2000 status post sentinel lymph node biopsy and chemoradiation presented to the ER for evaluation of sudden onset left-sided chest pain this morning. She received full dose aspirin in route to the hospital. Symptoms are worse with exertion with pain radiating into her sternum. According to the patient she was in her USOH until this am when around 9:30am she experienced sudden onset, non-radiating, left sided, sharp chest pain. States that it has been constant since, and worse with movement. Denies any dizziness, lightheadedness, endorses 2 episodes of shortness of breath, for whcih she took her inhaler. Denies any cough, recent hx of sick contact, prolonged immobolilization or travel hx. States taht she went to shopping nad th epain continued, worsening everytime sh emoved her left arm. Thinks it is musculoskeletal and states that yesterday she was putting a fitted sheet on her bed, when she may have pulled her muscle. Her ROS in otherwise unremarkable for pleuritic chest keyur, chandan,a PND. Does endorse swelling of R thigh>>L thigh fo rthe past 1 year. Endorses taking the flu shot this season. Of note, she had a simlar pain last year, at which time it was radiating her the right side of the chest and she was told she may have had a mild heart attack? Vitals on admission blood pressure 159/74, respiratory rate of 20, pulse 65, saturating 96% on room air. On physical exam she is alert, oriented x3 asnd in NAD lying comfortably in bed. HEENT reveals PERRLA, moist mucous membranes. Cardiovascular exam pertinent for normal S1, S2, no murmurs rubs or gallops appreciated. Chest was clear to auscultation bilaterally. Abdominal exam pertinent for an abdomen that was soft , mild tenderness to palpation in the epigastrium and right upper quadrant of the patient is has a cholecystectomy scar. Bowel sounds were normal in all 4 quadrants. Examination of lower extremities revealed right thigh a little bit more larger in girth compared to the left, pulses intact bilaterally. Neuro exam is grossly unremarkable. Labs pertinent for a number white blood cell count 10,400, H&H of 13.5/40.8, MCV of 89.7 platelet count 270,000. Chemistries revealed a sodium of 137, potassium of 4.6, bicarbonate 25, anion gap of 11, BUN 22 with a creatinine of 0.9. LFTs unremarkable with a total bili of 1.2, AST/L2 20/30, alkaline phosphatase of 89 with troponin less than 0.01 with a proBNP of 77.8. Chest x-ray showed EKG revealed normal sinus rhythm with a heart rate of 60, normal axis, first- degree A-V block ER in -, left bundle branch block which is unchanged with no ST-T changes. Last echocardiogram was in 2014 which showed an EF of 60-65% with a mildly increased left ventricular wall thickness. Assessment and plan Placed under observation on telemetry #Atypical chest pain Most likely musculoskeletal given that it is reproducible on palpation as well as worse with movements versus costochondritis versus pulmonary embolism unlikely given that it is not pleuritic chest pain and is reproducible on palpation versus ACS unlikely as it has been constant and her first set of troponin is negative with no remarkable EKG changes and no effect upon receiving nitroglycerin in the ER. Rule out ACS with troponins and EKG at 1 AM and 7 AM Follow-up echocardiogram to rule out any regional wall motion abnormalities If d-dimer is elevated we'll get a CTA to rule out PE Follow-up lower extremity Dopplers Cardiology consult in a.m. with Dr. Neely. Meanwhile continue on aspirin 81 mg daily, increase Lipitor to [address] a Lidoderm patch and consider starting on Voltaren gel. We'll also start on Flexeril 5 mg twice a day when necessary by mouth for muscle spasm #Asthma/COPD Continue Symbicort and albuterol as needed #Hypertension Continue on metoprolol 50 mg twice a day, losartan 50 mg daily #GERD Continue on omeprazole 40 mg daily #Hypothyroidism Continue on Synthroid 0.175 mg daily DVT prophylaxis On heparin 5000units 3 times a day subcutaneous Diet Heart healthy Code Status Full code Georgia Dyer 06/19/17 0354: Attending MD Review Statement Attending Statement Attending MD Statement: examined this patient, discuss w/resident/PA/ASSISTANT GROCERY, agreed w/resident/PA/ASSISTANT GROCERY, reviewed EMR data (avail), reviewed images, amended to note Attending Assessment/Plan: CC: Chest pain PMH: Asthma, hypothyroidism, HTN, HLD, right breast cancer 2000 S/P lumpectomy, chemotherapy and radiation, GERD with atrophic gastropathy Patient came to ER for left-sided and substernal chest pain started this morning. She woke up this morning and did not have any symptoms, she was trying to make her bed and putting fitted sheet on a bed but she did not notice any full of muscle. Eventually she had breakfast and after her breakfast she started to notice substernal and left-sided chest pain radiating all across the chest and not from left shoulder or left jaw, 10 over 10, worsening with change in position, now worsening with deep breathing. Patient also noticed mild shortness of breath when she woke up but it was her regular asthma related shortness of breath which relieved with inhaler and did not recur thereafter. She has mild chronic cough but no sputum production or change in cough recently. No vomiting, diarrhea, recent antibiotic use. She has right upper quadrant pain even after cholecystectomy since last 2 years and expected to get a CT scan. She states that somebody in ER told her that she had "mild heart attack"last year. She was not admitted for that "heart attack, and was observed in ER. She did not follow- up with transport tech thereafter. She last saw her transport tech approximately 3 ER back and had coronary catheterization many years back without any stents. She does not recall her recent stress test. No significant family history of coronary artery disease and no smoking. She states that her right leg is always larger than left leg and the legs appear bloated. Patient states that she had mild relief with sublingual nitrate but pain started again. Vitals: Afebrile, pulse in 60s, RR 20, blood pressure 147/81, saturating 96% on room air. On exam: A O 3, cooperative, no acute distress, neck supple, JVD normal, no lymphadenopathy, mucosa moist, no focal neurological deficit, no obvious skin rashes or inflammation CVS: S1-S2, RRR, pain reproducible in the anterior sternum. RS: Clear to auscultate bilaterally. Abdomen: Soft, mild right upper quadrant tenderness, ND, bowel sounds present. I did not appreciate any difference in her lower extremity girth, no dependent edema ECG: Old left bundle branch block Assessment and plan 67-year-old female with past medical history significant for Asthma, hypothyroidism, HTN, HLD, right breast cancer 2000 S/P lumpectomy, chemotherapy and radiation, GERD with atrophic gastropathy presented in ER for substernal and left-sided chest pain radiating all across the chest, not radiating to left arm or jaw, not associated with chest tightness or palpitations, worsening with movement, relieved at rest. Patient is not aware if the chest pain gets worsened with exertion. Denies any pleuritic pain. No significant family history for CAD, or actually not smoking. Someone in the ER told her last year that she had "mild heart attack". She never followed up with transport tech thereafter. I could not find any such evidence of elevated troponin or ER note about this. Patient does not recall when her last stress test was, had coronary catheterization many years back does not have any stents. Last saw her transport tech 3 years back. Patient states that she had mild relief of pain with sublingual nitroglycerin but then it reappeared. But this pain is reproducible on palpation. No ECG changes could be appreciated secondary to left bundle branch block, troponin negative. This appears more musculoskeletal pain but acute coronary syndrome should be ruled out. At the same time PE should be ruled out with d-dimer, low probability and pancreatitis should be ruled out. Her right upper quadrant pain appears to be chronic and she should follow up outpatient for that. + Chest pain rule out acute coronary syndrome + History of Asthma, hypothyroidism, HTN, HLD, right breast cancer 2000 S/P lumpectomy, chemotherapy and radiation, GERD with atrophic gastropathy - Place in observation on telemetry - Continuous telemetry monitoring - Serial troponin and EKGs - 2-D echo in a.m. if significant increase in troponin - Cardiology consult in a.m. - Continue aspirin, statin - Try lidocaine patch locally - Obtain d-dimer - Obtain lipase - DVT prophylaxis - Continue all her home medications
--- NOTE | 2017-06-19 07:27 | PN- Housestaff ---
[place],[facility] 06/19/17 0727: Subjective Follow-up For: Atypical chest pain Subjective: Patient states she continues to have the chest pain 10 out of 10, with no relief from aspirin, nitroglycerin or Tylenol. Requesting a Lidoderm patch. Also reports dizziness and shortness of breath associated with chest pain. Denies any syncope episodes. Review of Systems Constitutional: Reports: no symptoms. EENTM: Reports: no symptoms. Cardiovascular: Reports: chest pain, palpitations. Respiratory: Reports: short of breath. Gastrointestinal: Reports: no symptoms. Genitourinary: Reports: no symptoms. Musculoskeletal: Reports: no symptoms. Skin: Reports: no symptoms. Neurological/Psychological: Reports: no symptoms. Hematologic/Endocrine: Reports: no symptoms. Immunologic/Allergic: Reports: no symptoms. Objective Last 24 Hrs of Vital Signs/I&O Vital Signs Date Time Temp Pulse Resp B/P B/P Pulse O2 O2 Flow FiO2 Mean Ox Delivery Rate 06/19 1403 98.0 64 20 94 Room Air 06/19 1332 98.5 60 20 107/61 95 Room Air 06/19 1242 Room Air Room Air 06/19 1050 98.0 59 18 128/71 95 Room Air 06/19 0900 98.2 70 18 139/65 06/19 0900 98.2 70 18 139/65 06/19 0840 98.2 70 18 139/65 92 Room Air 06/19 0621 97.6 65 18 130/71 95 Room Air 06/19 0009 98.3 58 20 141/73 94 Room Air 06/18 2212 97.8 64 18 154/76 97 Room Air 06/18 1959 65 20 159/74 96 Room Air 06/18 1831 97.7 62 18 155/78 98 Room Air 06/18 1830 Room Air 06/18 1701 97.6 61 20 147/81 96 Room Air Intake & Output 06/19 1600 06/19 0800 06/19 0000 Intake Total 480 Output Total Balance 480 Intake, Oral 480 Patient 282 lb Weight Weight Bed scale Measurement Method Physical Exam General Appearance: Alert, Oriented X3, Cooperative, No Acute Distress Skin: No Rashes, No Breakdown Cardiovascular: Regular Rate, Normal S1, Normal S2 Lungs: Clear to Auscultation, Normal Air Movement Abdomen: Normal Bowel Sounds, Soft, No Tenderness Extremities: No Clubbing, No Cyanosis, edematous right thigh Current Medications: Current Medications Sig/Jennifer Start time Last Medication Dose Route Stop Time Status Admin Acetaminophen 0 .STK-MED ONE 06/19 1055 DC PO Acetaminophen 0 .STK-MED ONE 06/19 0548 DC PO Acetaminophen 0 .STK-MED ONE 06/19 0220 DC PO Acetaminophen 650 MG Q4P PRN 06/18 2300 AC 06/19 PO 1520 Acetaminophen 0 .STK-MED ONE 06/18 2259 DC PO Albuterol Sulfate 2 PUF Q4-6 PRN PRN 06/18 2100 AC INH Aspirin Buffered 81 MG DAILY 06/19 1000 AC 06/19 PO 0900 Atorvastatin Calcium 10 MG 1700 06/19 1700 DC PO Atorvastatin Calcium 40 MG 1700 06/18 2245 AC 06/18 PO 2235 Budesonide/ 2 PUF BID 06/18 2200 AC 06/19 Formoterol Fumarate INH 0900 Calcium 600 MG BID 06/18 2200 AC 06/19 PO 0900 Cyclobenzaprine HCl 5 MG BID PRN 06/18 2230 AC PO Diclofenac Sodium 1 LADONNA 4 TIMES/DAY 06/18 2229 DC TOP Ferrous Sulfate 325 MG BID 06/18 2200 AC 06/19 PO 0900 Fish Oil 2,100 MG BID 06/18 2200 AC 06/19 PO 0900 Heparin Sodium 0 .STK-MED ONE 06/18 222 DC (Porcine) .ROUTE Heparin Sodium 5,000 UNIT Q8 06/18 2200 AC 06/19 (Porcine) SC 0655 Levothyroxine Sodium 0.175 MG DAILY AC 06/19 0700 AC 06/19 PO 0655 Lidocaine 1 PAT DAILY 06/18 2330 AC 06/19 EXT 0900 Losartan Potassium 50 MG DAILY 06/19 1000 AC 06/19 PO 0900 Metoprolol Tartrate 0 .STK-MED ONE 06/18 2220 DC PO Metoprolol Tartrate 50 MG BID 06/18 2200 AC 06/19 PO 0900 Nitroglycerin 0 .STK-MED ONE 06/18 1617 DC SL Nitroglycerin 0.4 MG ONCE ONE 06/18 1600 DC 06/18 SL 06/18 1601 1614 Omeprazole 40 MG DAILY AC 06/19 0700 AC 06/19 PO 0655 Polyethylene Glycol 17 GM DAILY 06/19 1000 AC 06/19 PO 0900 Last 24 Hrs of Lab/Buzz Results Last 24 Hrs of Labs/Mics: Laboratory Tests 06/19/17 0650: Anion Gap 10, Estimated GFR > 60, BUN/Creatinine Ratio 28.8 H, Magnesium 1.9, Troponin I < 0.01 06/19/17 0106: Troponin I < 0.01, Lipase 112 06/18/17 2235: D-Dimer High Sensitivty Cancelled 06/18/17 1928: Anion Gap 11, Estimated GFR > 60, BUN/Creatinine Ratio 24.4, Glucose 94, Calcium 9.4, Magnesium 1.8, Total Bilirubin 1.2, AST 20, ALT 30, Alkaline Phosphatase 89 , Troponin I < 0.01, Sxd-Y-Erchxbdrwlv Pept 77.8, Total Protein 6.5, Albumin 4.1 , Globulin 2.4, Albumin/Globulin Ratio 1.7 06/18/17 1628: D-Dimer High Sensitivty 293 H, CBC w Diff NO MAN DIFF REQ, RBC 4.55, MCV 89.7, MCH 29.8, MCHC 33.2, RDW 13.7, MPV 7.8, Gran % 70.7, Lymphocytes % 20.1 L, Monocytes % 7.2, Eosinophils % 1.8, Basophils % 0.2, Absolute Granulocytes 7.3 H, Absolute Lymphocytes 2.1, Absolute Monocytes 0.7 H, Absolute Eosinophils 0.2 , Absolute Basophils 0 Assessment/Plan Assessment: 67-year-old female with past medical history of Hypertension, hyperlipidemia, asthma, diverticulitis, GERD, osteoarthritis, anxiety, hypothyroidism infiltrating right breast cancer diagnosed in 2000 status post chemoradiation came to [place] ER with complaints of left-sided sharp chest pain of 10 x 10 in intensity with no radiation and not relieved by rest or any medication. Assessment and plan #Atypical chest pain Most likely musculoskeletal given that it is reproducible on palpation as well as worse with movements versus costochondritis versus pulmonary embolism unlikely given that it is not pleuritic chest pain and is reproducible on palpation versus ACS unlikely as it has been constant and her first set of troponin is negative with no remarkable EKG changes and no effect upon receiving nitroglycerin in the ER. - ACS Ruled out with negative troponins and EKG 3. - Patient will follow up with Dr. Neely as an outpatient for a nuclear stress test. - Last echocardiogram was on 06/16/2014 showing an ejection fraction of 60% with no regional wall motion abnormalities. No need for an echocardiogram now can be done as an outpatient needed when the patient sees Dr. Neely after discharge. - CTA was not obtained because of very low probability of PECTA was not obtained because of very low probability of PE with D-dimer was 293 with negative lower extremity Dopplers. - Continue aspirin 81 mg daily and increased Lipitor to 40 mg daily - Lidoderm patch. #Asthma/COPD Continue Symbicort and albuterol as needed #Hypertension Continue on metoprolol 50 mg twice a day, losartan 50 mg daily #GERD Continue on omeprazole 40 mg daily #Hypothyroidism Continue on Synthroid 0.175 mg daily DVT prophylaxis; S/C heparin Patient is full code Problem List: 1. Atypical chest pain Pain Ratin Pain Location: Chest Pain Goal: Pain 7 or less Pain Plan: Pain pathway Lidoderm patch Tomorrow's Labs & Rationales: None [place],Bre 06/19/17 1231: Attending MD Review Statement Attending Statement Attending MD Statement: examined this patient, discuss w/resident/PA/[employer], agreed w/resident/PA/[employer], reviewed EMR data (avail), discussed with nursing, discussed with case mgmt, reviewed images Attending Assessment/Plan: 67-year-old female past medical history of obstructive lung disease, hypertension, remote history of breast CA and hyperlipidemia who is here with this atypical chest pain. The nature of the chest pain is hard to tease out and it is reproducible. She has ruled out with serial enzymes and EKG. Her d-dimer is low and her Doppler is negative so my clinical suspicion for a PE is really low. Will have cardiology see her. If they are not convinced then we'll have to pursue a CTA to make sure that there is no VTE explaining this chest pain. Of note she is not tachycardic or hypoxic. She does have risk factors for CAD so will have to follow up with cardiology about that. She is already on an aspirin and statin, sumi and beta esperanza.
--- NOTE | 2017-06-19 11:02 | ULTRASOUND REPORT ---
EXAMINATION: US TRIPLEX OF LOWER EXTREMITIES, BILATERAL CLINICAL INFORMATION: Bilateral lower extremity edema and swelling COMPARISON: None TECHNIQUE: Color-flow triplex imaging with spectral analysis and compression Doppler were performed on the lower extremities. FINDINGS: Respiratory variation, normal compression and augmented flow are noted throughout the lower extremities. The visualized common femoral vein, superficial femoral vein, profunda femoral vein, popliteal vein and midcalf peroneal and posterior tibial venous segments show no evidence of deep venous thrombosis. There is no Mcgowan's cyst. IMPRESSION: No evidence of deep venous thrombosis involving the lower extremities.
[2017-06-19 13:32] VITALS: BP 107/61
--- NOTE | 2017-06-19 13:39 | Patient Discharge Instructions ---
Discharge Instructions General Discharge Information You were seen/treated for: Atypical Chest Pain most likely musculoskeletal Watch for these problems: Please return to the ER in case of any Chest Pain, Shortness of breath, Palpitations or lightheadedness/dizziness. Special Instructions: Please follow up with your wind field service manager within a week after discharge. You will need a stress test as an outpatient which can be arranged at that time. Diet Continue normal diet: Yes Activity Full Activity/No Limits: Yes Acute Coronary Syndrome Inclusion Criteria At DC or during hospital stay patient has or had the following: ACS DIAGNOSIS No Discharge Core Measures Meds if any: Prescribed or Continued at Discharge Meds if any: NOT Prescribed or Continued at Discharge Congestive Heart Failure Inclusion Criteria At DC or during hospital stay patient has or had the following: CHF DIAGNOSIS No Discharge Core Measures Meds if any: Prescribed or Continued at Discharge Meds if any: NOT Prescribed or Continued at Discharge Cerebrovascular accident Inclusion Criteria At DC or during hospital stay patient has or had the following: CVA/TIA Diagnosis No Discharge Core Measures Meds if any: Prescribed or Continued at Discharge Meds if any: NOT Prescribed or Continued at Discharge Venous thromboembolism Inclusion Criteria VTE Diagnosis No VTE Type NONE VTE Confirmed by (Test) DUPLEX SCAN LOWER EXT Discharge Core Measures - Per Current guidelines, there needs to be overlap - treatment for the first 5 days of Warfarin therapy. - If discharged on Warfarin prior to 5 days of - overlap therapy, the patient will need to be - assessed for post discharge needs including - *Post discharge parental anticoagulation - *Warfarin and/or parental anticoagulation education - *Follow up date to check INR post discharge At least 5 days overlap therapy as Inpatient No Meds if any: Prescribed or Continued at Discharge Note: Overlap Therapy is Warfarin and Anticoagulant Meds if any: NOT Prescribed or Continued at Discharge
--- NOTE | 2017-06-19 13:56 | Cons- Cardiology ---
General Information and HPI Consulting Request Date of Consult: 06/19/17 Requested By: Bre Ornelas MD Reason for Consult: Chest pain, abnormal EKG Source of Information: patient, old records Exam Limitations: no limitations History of Present Illness: The patient is a 67-year-old female who is known to me from prior office visits and admissions. Her history is remarkable for hypertension, hyperlipidemia, prior chest discomfort, asthma, reflux disease, hypothyroidism, breast cancer, etc. The patient presented to the emergency room with complaints of left-sided, sharp, persistent chest discomfort which she initially rated as a 10/10 in severity. The symptoms were present on awakening in the morning. Over the last 18-24 hours, the symptoms have persisted, although they have now decreased to a 5/10 in severity. The patient notes no significant improvement with nitroglycerin. Her symptoms are reproducible chest wall palpation. Her ECG has a chronic left bundle-branch block. Allergies/Medications Allergies: Coded Allergies: metronidazole (From FLAGYL) (Mild, hives 01/12/16) Penicillins (RASH 01/12/16) Sulfa (Sulfonamide Antibiotics) (HIVES 01/12/16) adhesive tape (RED, ITCHY 01/12/16) ciprofloxacin (From CIPRO) (HIVES 01/12/16) metoclopramide (From REGLAN) (PER PT DOES NOT REMEMBER 01/12/16) naproxen (PER PT DOESNT REMEMBER 01/12/16) oxycodone (RASH, BLOTCHES 01/12/16) promethazine (RASH, HIVES 01/12/16) sulfamethoxazole (From BACTRIM) (HIVES 01/12/16) sumatriptan (From IMITREX) (PT DOESNT REMEMBER 01/12/16) tramadol (FACIAL EDEMA 01/12/16) trimethoprim (From BACTRIM) (HIVES 01/12/16) Uncoded Allergies: ANTI-HISTAMINES (ACID REFLUX 03/01/15) Home Med List: Albuterol Sulfate 2.5 MG/3 ML (0.083 %) VIAL.NEB 1 Vial INH/GRACIE AD PRN ASTHMA (Reported) Albuterol Sulfate (Ventolin Hfa) 90 MCG HFA.AER.AD 1-2 PUF INH AD PRN ASTHMA (Reported) Aspirin (Ecotrin*) 81 MG TABLET.DR 1 TAB PO DAILY HEART/BLOOD (Reported) Atorvastatin Calcium (Lipitor) 10 MG TABLET 1 TAB PO DAILY CHOLESTEROL ( Reported) Budesonide/Formoterol Fumarate (Symbicort 160-4.5 Mcg Inhaler) 160 MCG-4.5 MCG/ ACTUATION HFA.AER.AD 2 PUF INH BID ASTHMA (Reported) Calcium Carb/Vitamin D3/Vit K1 (Calcium + D Soft Chewable Tab) 500 MG CALCIUM-1, 000 UNIT-40 MCG TAB.CHEW 1 TAB PO BID SUPPLEMENT (Reported) Cyanocobalamin (Vitamin B-12) (Vitamin B-12) 2,000 MCG TABLET 1 TAB PO DAILY SUPPLEMENT (Reported) Ferrous Sulfate 325 MG (65 MG IRON) TABLET 1 TAB PO BID SUPPLEMENT (Reported) Levothyroxine Sodium 175 MCG TABLET 1 TAB PO DAILY THYROID (Reported) Losartan Potassium 50 MG TABLET 1 TAB PO DAILY BP (Reported) Metoprolol Tartrate 50 MG TABLET 1 TAB PO BID HEART (Reported) [place]-3 Acid Ethyl Esters (Lovaza) 1 GRAM CAPSULE 2 CAP PO BID CHOLESTEROL/ TRIGLYCERIDES (Reported) Pantoprazole Sodium (Protonix) 40 MG TABLET.DR 1 TAB PO DAILY GI (Reported) Polyethylene Glycol 3350 (Miralax) 17 GRAM POWD.PACK 1 PAC PO DAILY GI ( Reported) dissolve in water Current Medications: Current Medications Sig/Jennifer Start time Last Medication Dose Route Stop Time Status Admin Acetaminophen 0 .STK-MED ONE 06/19 1055 DC PO Acetaminophen 0 .STK-MED ONE 06/19 0548 DC PO Acetaminophen 0 .STK-MED ONE 06/19 0220 DC PO Acetaminophen 650 MG Q4P PRN 06/18 2300 AC 06/19 PO 1055 Acetaminophen 0 .STK-MED ONE 06/18 2259 DC PO Albuterol Sulfate 2 PUF Q4-6 PRN PRN 06/18 2100 AC INH Aspirin Buffered 81 MG DAILY 06/19 1000 AC 06/19 PO 0900 Atorvastatin Calcium 10 MG 1700 06/19 1700 DC PO Atorvastatin Calcium 40 MG 1700 06/18 2245 AC 06/18 PO 2235 Budesonide/ 2 PUF BID 06/18 2200 AC 06/19 Formoterol Fumarate INH 0900 Calcium 600 MG BID 06/18 2200 AC 06/19 PO 0900 Cyclobenzaprine HCl 5 MG BID PRN 06/18 2230 AC PO Diclofenac Sodium 1 LADONNA 4 TIMES/DAY 06/18 2228 DC TOP Ferrous Sulfate 325 MG BID 06/18 2200 AC 06/19 PO 0900 Fish Oil 2,100 MG BID 06/18 220 AC 06/19 PO 0900 Heparin Sodium 0 .STK-MED ONE 06/18 2219 DC (Porcine) .ROUTE Heparin Sodium 5,000 UNIT Q8 06/18 220 AC 06/19 (Porcine) SC 0655 Levothyroxine Sodium 0.175 MG DAILY AC 06/19 0700 AC 06/19 PO 0655 Lidocaine 1 PAT DAILY 06/18 2330 AC 06/19 EXT 0900 Losartan Potassium 50 MG DAILY 06/19 1000 AC 06/19 PO 0900 Metoprolol Tartrate 0 .STK-MED ONE 06/18 2219 DC PO Metoprolol Tartrate 50 MG BID 06/18 2199 AC 06/19 PO 0900 Nitroglycerin 0 .STK-MED ONE 06/18 1617 DC SL Nitroglycerin 0.4 MG ONCE ONE 06/18 1600 DC 06/18 SL 06/18 1601 1614 Omeprazole 40 MG DAILY AC 06/19 0700 AC 06/19 PO 0655 Polyethylene Glycol 17 GM DAILY 06/19 1000 AC 06/19 PO 0900 Past History Travel History Traveled to [place] past 21 day No Medical History Neurological: migraine, 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 EENT: NONE Cardiovascular: hypertension, hyperlipidemia, CARDIOVASCULAR DISEASE Respiratory: asthma Gastrointestinal: diverticulitis, GERD, DIVERTICULOSIS Hepatic: NONE Renal: NONE Musculoskeletal: osteoarthritis, leg swelling Psychiatric: anxiety Endocrine: hypothyroidism Blood Disorders: ANEMIADD Cancer(s): BREAST CA RIGHT IN 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 [facility] Who Do You Live With? spouse, child Services at Home: Nursing Primary Language: Guamanian Smoking Status: Never Smoked ETOH Use: denies use Living Will? unknown Functional Ability ADLs Independent: dressing, eating, toileting, bathing. Ambulation: cane IADLs Needs Assist: shopping, housework, finances, food prep, telephone, transportation, medication admin. Exam & Diagnostic Data Vital Signs and I&O Vital Signs Date Time Temp Pulse Resp B/P B/P Pulse O2 O2 Flow FiO2 Mean Ox Delivery Rate 06/19 1332 98.5 60 20 107/61 95 Room Air 06/19 1242 Room Air Room Air 06/19 1050 98.0 59 18 128/71 95 Room Air 06/19 0900 98.2 70 18 139/65 06/19 0900 98.2 70 18 139/65 06/19 0840 98.2 70 18 139/65 92 Room Air 06/19 0621 97.6 65 18 130/71 95 Room Air 06/19 0009 98.3 58 20 141/73 94 Room Air 06/18 2212 97.8 64 18 154/76 97 Room Air 06/18 1959 65 20 159/74 96 Room Air 06/18 1831 97.7 62 18 155/78 98 Room Air 06/18 1830 Room Air 06/18 1701 97.6 61 20 147/81 96 Room Air Intake & Output 06/19 1600 06/19 0800 06/19 0000 06/18 1600 06/18 0800 06/18 0000 Intake Total 480 Output Total Balance 480 Intake, Oral 480 Patient 282 lb Weight Physical Exam: General Appearance Alert, Oriented X3, Cooperative, No Acute Distress Skin normal HEENT PERRLA, EOMI Cardiovascular Normal S1, Normal S2, No Murmurs, left-sided chest wall tenderness and left parasternal chest wall tenderness reproducing chest discomfort. Lungs Clear to Auscultation and percussion bilaterally Abdomen Soft, No Tenderness, No Hepatospenomegaly Neurological Normal/nonfocal Extremities rt thigh greater than left thigh. Labs/Buzz Results: Laboratory Tests 06/19 06/19 06/18 06/18 0650 0106 2235 1928 Chemistry Sodium (137 - 145 mmol/L) 137 137 Potassium (3.5 - 5.1 mmol/L) 4.2 4.6 Chloride (98 - 107 mmol/L) 104 100 Carbon Dioxide (22 - 30 mmol/L) 23 25 Anion Gap (5 - 16) 10 11 BUN (7 - 17 mg/dL) 23 H 22 H Creatinine (0.5 - 1.0 mg/dL) 0.8 0.9 Estimated GFR (>60 ml/min) > 60 > 60 BUN/Creatinine Ratio (7 - 25 %) 28.8 H 24.4 Glucose (65 - 99 mg/dL) 94 Calcium (8.4 - 10.2 mg/dL) 9.4 Magnesium (1.6 - 2.3 mg/dL) 1.9 1.8 Total Bilirubin (0.2 - 1.3 mg/dL) 1.2 AST (14 - 36 U/L) 20 ALT (9 - 52 U/L) 30 Alkaline Phosphatase (<127 U/L) 89 Troponin I (< 0.11 ng/ml) < 0.01 < 0.01 < 0.01 [id number]-[id number] Pept (<125 pg/mL) 77.8 Total Protein (6.3 - 8.2 g/dL) 6.5 Albumin (3.5 - 5.0 g/dL) 4.1 Globulin (1.9 - 4.2 gm/dL) 2.4 Albumin/Globulin Ratio (1.1 - 2.2 %) 1.7 Lipase (23 - 300 U/L) 112 Coagulation D-Dimer High Sensitivty Cancelled 06/18 1628 Coagulation D-Dimer High Sensitivty (0 - 243 ng/ml) 293 H Hematology CBC w Diff NO MAN DIFF REQ WBC (4.8 - 10.8 /CUMM) 10.4 RBC (4.20 - 5.40 /CUMM) 4.55 Hgb (12.0 - 16.0 G/DL) 13.5 Hct (37 - 47 %) 40.8 MCV (81.0 - 99.0 FL) 89.7 MCH (27.0 - 31.0 PG) 29.8 MCHC (33.0 - 37.0 G/DL) 33.2 RDW (11.5 - 14.5 %) 13.7 Plt Count (130 - 400 /CUMM) 273 MPV (7.4 - 10.4 FL) 7.8 Gran % (42.2 - 75.2 %) 70.7 Lymphocytes % (20.5 - 51.1 %) 20.1 L Monocytes % (1.7 - 9.3 %) 7.2 Eosinophils % (0 - 5 %) 1.8 Basophils % (0.0 - 2.0 %) 0.2 Absolute Granulocytes (1.4 - 6.5 /CUMM) 7.3 H Absolute Lymphocytes (1.2 - 3.4 /CUMM) 2.1 Absolute Monocytes (0.10 - 0.60 /CUMM) 0.7 H Absolute Eosinophils (0.0 - 0.7 /CUMM) 0.2 Absolute Basophils (0.0 - 0.2 /CUMM) 0 Diagnostic Data EKG Results Sinus bradycardia with left bundle branch block Other Results Bilateral lower extremity venous Doppler: FINDINGS: Respiratory variation, normal compression and augmented flow are noted throughout the lower extremities. The visualized common femoral vein, superficial femoral vein, profunda femoral vein, popliteal vein and midcalf peroneal and posterior tibial venous segments show no evidence of deep venous thrombosis. There is no Mcgowan's cyst. IMPRESSION: No evidence of deep venous thrombosis involving the lower extremities. Assessment/Plan Assessment/Plan Assessment: 1. Chest pain syndrome-despite the patient's abnormal EKG, which is a chronic abnormality, the patient's symptoms are strongly suggestive of musculoskeletal discomfort with reproducible symptoms on palpation of the chest wall. I do not see any band any evidence of an acute ischemic event. The patient's serial troponins have been negative. 2. Abnormal ECG with left bundle branch block 3. Hypertension 4. Hyperlipidemia 5. Hypothyroidism 6. History of asthma/COPD 7. History of reflux disease Recommendations: -Telemetry observation -Echocardiogram pending -Conservative treatment for chest wall discomfort -I discussed the situation in detail with the patient. Although her current symptoms seem to be atypical, the patient does have an abnormal EKG and we will follow through with a pharmacologic nuclear stress test as an outpatient. -Otherwise, from a cardiac standpoint, I believe the patient can be safely discharged. Consult Acknowledgment - Thank you for your consult request.
--- NOTE | 2017-06-19 15:36 | PN- Student ---
Subjective Subjective: Patient seen and examined this morning in the ED. She reports still having pain in her chest especially when it is touched. It does not radiate anywhere. She states that she has been having some palpitations for the past year. She also states the swelling in her left leg causes her pain. She denies all other symptoms. Objective Objective: Vital Signs Date Time Temp Pulse Resp B/P B/P Pulse O2 O2 Flow FiO2 Mean Ox Delivery Rate 06/19 1403 98.0 64 20 94 Room Air 06/19 1332 98.5 60 20 107/61 95 Room Air 06/19 1242 Room Air Room Air 06/19 1050 98.0 59 18 128/71 95 Room Air 06/19 0900 98.2 70 18 139/65 06/19 0900 98.2 70 18 139/65 06/19 0840 98.2 70 18 139/65 92 Room Air 06/19 0621 97.6 65 18 130/71 95 Room Air 06/19 0009 98.3 58 20 141/73 94 Room Air 06/18 2212 97.8 64 18 154/76 97 Room Air 06/18 1959 65 20 159/74 96 Room Air 06/18 1831 97.7 62 18 155/78 98 Room Air 06/18 1830 Room Air 06/18 1701 97.6 61 20 147/81 96 Room Air Intake & Output 06/19 1600 06/19 0800 06/19 0000 Intake Total 480 Output Total Balance 480 Intake, Oral 480 Patient 282 lb Weight Weight Bed scale Measurement Method Physical Exam: General: alert and oriented x3, cooperative, non-ill appearing, obese Lungs: clear to auscultation, non-labored breathing Cardiac: no JVD, normal S1 and S2, no murmurs, rubs or gallops Abdomen: soft, non-distended, no guarding or rebound tenderness, normal bowel sounds Extremities: right leg with significant swelling around right knee, no pedal edema, normal coloration Results Results: Laboratory Tests 06/19/17 0650: Anion Gap 10, Estimated GFR > 60, BUN/Creatinine Ratio 28.8 H, Magnesium 1.9, Troponin I < 0.01 06/19/17 0106: Troponin I < 0.01, Lipase 112 06/18/17 2235: D-Dimer High Sensitivty Cancelled 06/18/17 1928: Anion Gap 11, Estimated GFR > 60, BUN/Creatinine Ratio 24.4, Glucose 94, Calcium 9.4, Magnesium 1.8, Total Bilirubin 1.2, AST 20, ALT 30, Alkaline Phosphatase 89 , Troponin I < 0.01, Mbc-E-Oykykncmvha Pept 77.8, Total Protein 6.5, Albumin 4.1 , Globulin 2.4, Albumin/Globulin Ratio 1.7 06/18/17 1628: D-Dimer High Sensitivty 293 H, CBC w Diff NO MAN DIFF REQ, RBC 4.55, MCV 89.7, MCH 29.8, MCHC 33.2, RDW 13.7, MPV 7.8, Gran % 70.7, Lymphocytes % 20.1 L, Monocytes % 7.2, Eosinophils % 1.8, Basophils % 0.2, Absolute Granulocytes 7.3 H, Absolute Lymphocytes 2.1, Absolute Monocytes 0.7 H, Absolute Eosinophils 0.2 , Absolute Basophils 0 Current Medications Sig/Jennifer Start time Last Medication Dose Route Stop Time Status Admin Acetaminophen 0 .STK-MED ONE 06/19 1055 DC PO Acetaminophen 0 .STK-MED ONE 06/19 0548 DC PO Acetaminophen 0 .STK-MED ONE 06/19 0220 DC PO Acetaminophen 650 MG Q4P PRN 06/18 2300 AC 06/19 PO 1520 Acetaminophen 0 .STK-MED ONE 06/189 DC PO Albuterol Sulfate 2 PUF Q4-6 PRN PRN 06/18 2100 AC INH Aspirin Buffered 81 MG DAILY 06/19 1000 AC 06/19 PO 0900 Atorvastatin Calcium 10 MG 1700 06/19 1700 DC PO Atorvastatin Calcium 40 MG 1700 06/18 2245 AC 06/18 PO 2235 Budesonide/ 2 PUF BID 06/18 220 AC 06/19 Formoterol Fumarate INH 0900 Calcium 600 MG BID 06/18 2200 AC 06/19 PO 0900 Cyclobenzaprine HCl 5 MG BID PRN 06/18 2230 AC PO Diclofenac Sodium 1 LADONNA 4 TIMES/DAY 06/18 2228 DC TOP Ferrous Sulfate 325 MG BID 06/18 2200 AC 06/19 PO 0900 Fish Oil 2,100 MG BID 06/18 220 AC 06/19 PO 0900 Heparin Sodium 0 .STK-MED ONE 06/18 2219 DC (Porcine) .ROUTE Heparin Sodium 5,000 UNIT Q8 06/18 2200 AC 06/19 (Porcine) SC 0655 Levothyroxine Sodium 0.175 MG DAILY AC 06/19 0700 AC 06/19 PO 0655 Lidocaine 1 PAT DAILY 06/18 2330 AC 06/19 EXT 0900 Losartan Potassium 50 MG DAILY 06/19 1000 AC 06/19 PO 0900 Metoprolol Tartrate 0 .STK-MED ONE 06/18 2220 DC PO Metoprolol Tartrate 50 MG BID 06/18 2200 AC 06/19 PO 0900 Nitroglycerin 0 .STK-MED ONE 06/18 1617 DC SL Nitroglycerin 0.4 MG ONCE ONE 06/18 1600 DC 06/18 SL 06/18 1601 1614 Omeprazole 40 MG DAILY AC 06/19 0700 AC 06/19 PO 0655 Polyethylene Glycol 17 GM DAILY 06/19 1000 AC 06/19 PO 0900 Assessment/Plan Assessment: This is a 67 year old obese white woman with a history of hypertension, hyperlipidemia, asthma, diverticulitis, GERD, osteoarthritis, anxiety, hypothyroidism, right breast cancer s/p treatment in 2000 presenting for reproducible 10/10 left sided chest pain and chronic right leg swelling. Her EKG shows left bundle branch block. Her last ECHO in 2014 was normal with ejection fraction of 60-65%. She was given .4 mg of nitroglycerin in ED which did not help. Venous doppler study of extremities did not show evidence of DVT. Her labs were significant for troponin <.01, D-Dimer of 293, lipase of 112, BNP of 77.8. Because the pain is reproducible and her troponins have remained low, and a negative doppler study, this is most likely musculoskeletal chest pain. Plan: Chest pain: -Observe on telemetry -Cardiology consult recommendations will be followed -Serial troponins and EKGs -Will get echocardiogram today -Continue aspirin, metoprolol and statin History of hypertension, hyperlipidemia, asthma, GERD, OA, hypothyroidism: -Continue home medications - Try lidocaine patch locally - Obtain d-dimer - Obtain lipase - DVT prophylaxis - Continue all her home medications Chest pain: -Observe on telemetry -Cardiology consult recommendations will be followed -Serial troponins and EKGs -Will get echocardiogram today -Continue aspirin and statin
--- NOTE | 2017-06-20 09:09 | ECHOCARDIOGRAM REPORT ---
YESSY LUGO Age: 67 : 1950 Gender: F Exam Date: 06/19/2017 11:43 Exam Location: ER Ht (in): 66 Wt (lb): 286 BSA: 2.53 BP: 128 / 71 Ordering Physician: Marie Wakefield MD Referring Physician: Marie Wakefield MD Technologist: Mehdi Land [facility] Room Number: 8 Indications: MYOCARDIAL ISCHEMIA/DC Rhythm: Sinus Technical Quality: Fair, Technically difficult study FINDINGS Left Ventricle Normal size left ventricle. No obvious regional wall motion abnormalities. Normal left ventricular ejection fraction estimated at 55-60%. Abnormal septal motion. Right Ventricle Right ventricle not well visualized, grossly normal. Right Atrium Normal right atrial size. Left Atrium Normal left atrial size. Mitral Valve Mitral valve thickened. Trace mitral regurgitation. Aortic Valve Trileaflet aortic valve. Focal thickening of the aortic valve cusps. No aortic stenosis. No aortic regurgitation. Tricuspid Valve Tricuspid valve not well visualized, grossly normal. Mild-to- moderate tricuspid regurgitation. Right ventricular systolic pressure estimated at 36 mmHg. Pulmonic Valve Pulmonic valve not well visualized, grossly normal. Pericardium No pericardial effusion. Great Vessels Mild aortic dilatation at the level of the sinuses of valsalva (root). CONCLUSIONS 1. This was a technically difficult study 2. Aortic sclerosis is present with no valvular stenosis or insufficiency. Minimal enlargement of the ascending aorta is present at the level of the sinuses of Valsalva. 3. Mitral leaflet thickening is present with minimal mitral insufficiency. 4. No significant pericardial fluid was identified. 5. The left ventricular chamber size and systolic function appear normal. There are no resting wall motion abnormalities. Abnormal septal motion is present due to the presence of a bundle branch block. 6. The right heart structures were not optimally visualized. Mild to moderate tricuspid insufficiency is present with no evidence of pulmonary hypertension. Dennis Neely M.D. (Electronically Signed) Final Date: 20 June 2017 09:09 MEASUREMENTS (Male / Female) Normal Values 2D ECHO LV Diastolic Diameter PLAX 4.9 cm 4.2 - 5.9 / 3.9 - 5.3 cm LV Systolic Diameter PLAX 3.0 cm 2.1 - 4.0 cm LV Fractional Shortening PLAX 38.8 % 25 - 46 % LV Ejection Fraction 2D Teich 69.0 % IVS Diastolic Thickness 1.1 cm LVPW Diastolic Thickness 1.0 cm LV Relative Wall Thickness 0.4 LVOT Diameter 2.1 cm Aortic Root Diameter 3.7 cm Ascending Aorta Diameter 3.3 cm DOPPLER AV Peak Velocity 157.0 cm/s AV Peak Gradient 9.9 mmHg AV Mean Velocity 104.0 cm/s AV Mean Gradient 5.0 mmHg AV Velocity Time Integral 36.2 cm LVOT Peak Velocity 97.8 cm/s LVOT Peak Gradient 3.8 mmHg LVOT Mean Velocity 69.7 cm/s LVOT Mean Gradient 2.0 mmHg LVOT Velocity Time Integral 26.2 cm LVOT Stroke Volume 90.7 cm AV Area Cont Eq vti 2.5 cm AV Area Cont Eq pk 2.2 cm MV Peak Velocity 102.0 cm/s MV Peak Gradient 4.2 mmHg MV Mean Velocity 55.0 cm/s MV Mean Gradient 1.0 mmHg Mitral E Point Velocity 62.5 cm/s Mitral A Point Velocity 83.9 cm/s Mitral E to A Ratio 0.7 MV PHT Velocity 76.0 cm/s MV Deceleration Isabella 189.0 cm/s MV Pressure Half Time 120.6 ms MV Area PHT 1.8 cm MV Deceleration Time 327.0 ms TR Peak Velocity 232.0 cm/s TR Peak Gradient 21.5 mmHg Right Atrial Pressure 5.0 mmHg Pulmonary Artery Systolic Pressu 26.5 mmHg Right Ventricular Systolic Press 26.5 mmHg PV Peak Velocity 81.3 cm/s PV Peak Gradient 2.6 mmHg PV Mean Velocity 54.7 cm/s PV Mean Gradient 1.0 mmHg PV Velocity Time Integral 18.2 cm
--- NOTE | 2017-06-24 12:29 | RADIOLOGY REPORT ---
YESSY LUGO MR# [id number] ACC# [id number].GH EXAMINATION: CHEST 1 VIEW CLINICAL INFORMATION: Chest pain. COMPARISON: Chest CT from February 2017 report is reviewed. Images are not available for immediate comparison. TECHNIQUE: An AP view of the chest is provided. FINDINGS: The cardiac silhouette is not enlarged. The mediastinal and hilar contours are unremarkable. There are neither pleural effusions nor pneumothoraces. There is retrocardiac opacification. The osseous structures are unremarkable. IMPRESSION: Faint retrocardiac airspace disease. Recommendation is for a followup chest series to be obtained following treatment and/or resolution of symptoms to assure resolution of this appearance.
== END 2017-06-19 17:05 ==
LOC: ERH 15:39 → 1NO 19:39 → ERHI 19:39 → EDBEDREQ 06-19 08:47 → ERHI 06-19 09:02 → ENRESERV 06-19 11:41 → ENTRNSPT 06-19 13:11 → EDTRNSPT 06-19 13:24 → EDTRNSPTSTS 06-19 13:24 → 1NO 06-19 13:39 → CMPTRNSPT 06-19 13:47 → ENTRNSPT 06-19 16:02 → EDTRNSPTSTS 06-19 16:07 → EDTRNSPT 06-19 16:31 → 1NO 06-19 17:05
PROVIDERS: Physician Assistant Medical
DX: R07.89 Other chest pain (principal); I10 Essential (primary) hypertension; E78.5 Hyperlipidemia, unspecified; J44.9 Chronic obstructive pulmonary disease, unspecified; K21.9 Gastro-esophageal reflux disease without esophagitis; M19.90 Unspecified osteoarthritis, unspecified site; Z79.82 Long term (current) use of aspirin; G43.909 Migraine, unspecified, not intractable, without status migrainosus; F41.9 Anxiety disorder, unspecified; E03.9 Hypothyroidism, unspecified; Z85.3 Personal history of malignant neoplasm of breast; K31.9 Disease of stomach and duodenum, unspecified; R00.2 Palpitations; I44.7 Left bundle-branch block, unspecified
CPT/HCPCS: 71045; 82436; 93005; 93010; 93306; 93970; 96372; G0378; J1644; J3490

== ENCOUNTER 2017-08-03 22:30 | Emergency (ER) | payer OTHER, MEDICARE ==
[~2017-08-03] VITALS: Ht 167.6 cm; Wt 129.3 kg
[~2017-08-03 22:30] MED LIST changes: +ALBUTEROL2.5 MG/3 M INH/SOL; +VENTOLIN HFA18 GM INH
--- NOTE | 2017-08-03 23:13 | ED DYSPNEA/ASTHMA COMPLAINT ---
History of Present Illness General Chief Complaint: Dyspnea (COPD, CHF, Other) Stated Complaint: BIBIA SOB Source: patient, old records Exam Limitations: no limitations Vital Signs & Intake/Output Vital Signs & Intake/Output Vital Signs Date Time Temp Pulse Resp B/P B/P Pulse O2 O2 Flow FiO2 Mean Ox Delivery Rate 08/03 2334 95 Room Air Room Air 08/03 2254 97.9 62 20 135/65 97 Room Air ED Intake and Output 08/04 0000 08/03 1200 Intake Total Output Total Balance Patient 285 lb Weight Weight Estimated Measurement Method Allergies Coded Allergies: metronidazole (From FLAGYL) (Mild, hives 01/12/16) Penicillins (RASH 01/12/16) Sulfa (Sulfonamide Antibiotics) (HIVES 01/12/16) adhesive tape (RED, ITCHY 01/12/16) ciprofloxacin (From CIPRO) (HIVES 01/12/16) metoclopramide (From REGLAN) (PER PT DOES NOT REMEMBER 01/12/16) naproxen (PER PT DOESNT REMEMBER 01/12/16) oxycodone (RASH, BLOTCHES 01/12/16) promethazine (RASH, HIVES 01/12/16) sulfamethoxazole (From BACTRIM) (HIVES 01/12/16) sumatriptan (From IMITREX) (PT DOESNT REMEMBER 01/12/16) tramadol (FACIAL EDEMA 01/12/16) trimethoprim (From BACTRIM) (HIVES 01/12/16) Uncoded Allergies: ANTI-HISTAMINES (ACID REFLUX 03/01/15) Triage Nurses Notes Reviewed? yes Onset: Abrupt Duration: hour(s): (1), better, changing over time, continues in ED Timing: single episode today Severity: mild, moderate Activities at Onset: EATING Prior Episodes/Possible Cause: frequent episodes Associated Symptoms: cough LMP (ages 10-50): unknown : No Patient currently breastfeeds: No HPI: 67-year-old female past medical history of hypertension, hyponatremia, asthma presents for evaluation of shortness of breath. Patient reports that symptoms started several hours from presentation while she was eating. States she suddenly felt short of breath. She states she felt like she was choking. Symptoms associated with cough and congestion. No chest pain, hemoptysis or worsening lower extremity edema. No dizziness or lightheadedness. No fever. She states that she uses her albuterol inhaler at home without much improvement. She does not smoke but living with people who do. No nausea vomiting or diarrhea. No back pain or abdominal pain. (Parker MARSHALL,Ace) Reconcile Medications Albuterol Sulfate 2.5 MG/3 ML (0.083 %) VIAL.NEB 1 Vial INH/GRACIE AD PRN ASTHMA (Reported) Albuterol Sulfate (Ventolin Hfa) 90 MCG HFA.AER.AD 1-2 PUF INH AD PRN ASTHMA (Reported) Aspirin (Ecotrin*) 81 MG TABLET.DR 1 TAB PO DAILY HEART/BLOOD (Reported) Atorvastatin Calcium (Lipitor) 10 MG TABLET 1 TAB PO DAILY CHOLESTEROL ( Reported) Budesonide/Formoterol Fumarate (Symbicort 160-4.5 Mcg Inhaler) 160 MCG-4.5 MCG/ ACTUATION HFA.AER.AD 2 PUF INH BID ASTHMA (Reported) Calcium Carb/Vitamin D3/Vit K1 (Calcium + D Soft Chewable Tab) 500 MG CALCIUM-1, 000 UNIT-40 MCG TAB.CHEW 1 TAB PO BID SUPPLEMENT (Reported) Codeine Phosphate/Guaifenesi (Cheratussin AC Syrup) 10 MG-100 MG/5 ML LIQUID 10 ML PO Q6H PRN COUGH Cyanocobalamin (Vitamin B-12) (Vitamin B-12) 2,000 MCG TABLET 1 TAB PO DAILY SUPPLEMENT (Reported) Ferrous Sulfate 325 MG (65 MG IRON) TABLET 1 TAB PO BID SUPPLEMENT (Reported) Levothyroxine Sodium 175 MCG TABLET 1 TAB PO DAILY THYROID (Reported) Losartan Potassium 50 MG TABLET 1 TAB PO DAILY BP (Reported) Metoprolol Tartrate 50 MG TABLET 1 TAB PO BID HEART (Reported) Peel-3 Acid Ethyl Esters (Lovaza) 1 GRAM CAPSULE 2 CAP PO BID CHOLESTEROL/ TRIGLYCERIDES (Reported) Pantoprazole Sodium (Protonix) 40 MG TABLET.DR 1 TAB PO DAILY GI (Reported) Polyethylene Glycol 3350 (Miralax) 17 GRAM POWD.PACK 1 PAC PO DAILY GI ( Reported) dissolve in water (Ezekiel MONTALVO,Rubin Castle) Past History Travel History Traveled to [place] past 21 day No Medical History Any Pertinent Medical History? 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 EENT: NONE Cardiovascular: hypertension, hyperlipidemia, CARDIOVASCULAR DISEASE Respiratory: asthma Gastrointestinal: diverticulitis, GERD, DIVERTICULOSIS Hepatic: NONE Renal: NONE Musculoskeletal: osteoarthritis, leg swelling Psychiatric: anxiety Endocrine: hypothyroidism Blood Disorders: ANEMIADD Cancer(s): BREAST CA RIGHT IN [employer] [facility] [employer] OPERATOR/Reproductive: NONE History of MRSA: Yes History of VRE: No History of CDIFF: No Influenza Vaccine: 01/02/17 Tetanus Vaccine: 05/02/12 Surgical History Surgical History: cholecystectomy, hernia repair-umbilical, R BREAST LUMPECTOMY, CHOLY R KNEE REPL,HERNIA,TONSIL PARTIAL HYSTERECTOMY Psychosocial History Who do you live with Spouse Services at Home Nursing What is your primary language Turkmen Tobacco Use: Never used Family History Family History, If Any: Relation not specified for: *No pertinent family history Hx Contributory? No (Ace Hendrix) Review of Systems Review of Systems Constitutional: Reports: no symptoms. EENTM: Reports: no symptoms. Respiratory: Reports: see HPI, cough, short of breath, wheezing. Cardiovascular: Reports: no symptoms. GI: Reports: no symptoms. Genitourinary: Reports: no symptoms. Musculoskeletal: Reports: no symptoms. Skin: Reports: no symptoms. Neurological/Psychological: Reports: no symptoms. Hematologic/Endocrine: Reports: no symptoms. Immunologic/Allergic: Reports: no symptoms. All Other Systems: Reviewed and Negative (Ace Hendrix) Physical Exam Physical Exam General Appearance: well developed/nourished, no apparent distress, alert, awake , obese Head: atraumatic, normal appearance Eyes: Bilateral: normal appearance, PERRL, EOMI. Ears, Nose, Throat: normal pharynx, normal ENT inspection, hearing grossly normal Neck: normal inspection, supple, full range of motion Respiratory: chest non-tender, no respiratory distress, rhonchi, wheezing Cardiovascular: regular rate/rhythm, normal peripheral pulses Peripheral Pulses: 2+ radial (R), 2+ radial (L) Gastrointestinal: soft, non-tender Extremities: normal inspection, normal range of motion, no edema Neurologic/Psych: no motor/sensory deficits, awake, alert, oriented x 3 Skin: intact, normal color, warm/dry Lymphatic: no anterior cervical aniya Core Measures ACS in differential dx? No CVA/TIA Diagnosis No Sepsis Present: No Sepsis Focused Exam Completed? No (Ace Hendrix) Progress Differential Diagnosis: asthma, AMI, bronchitis, CHF, COPD, musculoskeletal pain , pulmonary embolism, pneumonia, pneumothorax, unstable angina Plan of Care: Orders Procedure Date/time Status TROPONIN LEVEL 08/04 2247 Complete D-DIMER 08/04 2247 Complete COMPREHENSIVE METABOLIC PANEL 08/04 2247 Complete CBC WITHOUT DIFFERENTIAL 08/04 2247 Complete EKG 08/04 2247 Active Laboratory Tests 08/03/178: Anion Gap 14, Estimated GFR > 60, BUN/Creatinine Ratio 23.3, Glucose 119 H, Calcium 9.7, Total Bilirubin 1.1, AST 16, ALT 28, Alkaline Phosphatase 85, Troponin I < 0.01, Total Protein 6.6, Albumin 3.8, Globulin 2.8, Albumin/ Globulin Ratio 1.4, D-Dimer High Sensitivty 257 H, CBC w Diff NO MAN DIFF REQ, RBC 4.39, MCV 89.7, MCH 30.2, MCHC 33.6, RDW 13.6, MPV 7.5, Gran % 71.0, Lymphocytes % 19.1 L, Monocytes % 8.1, Eosinophils % 1.7, Basophils % 0.1, Absolute Granulocytes 7.6 H, Absolute Lymphocytes 2.1, Absolute Monocytes 0.9 H, Absolute Eosinophils 0.2, Absolute Basophils 0 Patient seen and evaluated. She is reporting acute onset of shortness of breath and choking sensation while eating. She arrives without any signs of hypoxia or cyanosis. Vital signs are stable. She does have some mild wheezing and rhonchi all stated bilaterally. Patient medicated with DuoNeb and Robitussin-AC. We'll check basic blood work EKG and chest x-ray. Chest x-ray EKG within normal limits. Negative d-dimer. Patient is feeling much better after DuoNeb and Robitussin-AC. Chemistries are still pending. Patient sent to Dr. Falcon pending blood work and discharge. Diagnostic Imaging: Viewed by Me: Radiology Read. Discussed w/RAD: Radiology Read. CXR Impression: PATIENT: YESSY LUGO PRESENT AGE: 67 PATIENT ACCOUNT NO: [id number] : [birth year] LOCATION: [facility] ORDERING PHYSICIAN: Ace MARSHALL SERVICE DATE: 08/03/17 EXAM TYPE: RAD - XRY-CHEST XRAY, TWO VIEWS EXAMINATION: CHEST 2 VIEWS CLINICAL INFORMATION: Shortness of breath, cough. COMPARISON: 06/19/2017. TECHNIQUE: PA and lateral views of the chest were obtained. FINDINGS: The cardiac silhouette is stable. The mediastinal and hilar contours are unremarkable. There are neither pleural effusions nor pneumothoraces. There are no consolidations. The osseous structures are unremarkable. IMPRESSION: No evidence for acute disease. DICTATED BY: South Pate MD DATE/TIME DICTATED:08/03/172318 HEADER MACHINE OPERATOR:MELITON DATE/TIME TRANSCRIBED:08/03/172318 CONFIDENTIAL, DO NOT COPY WITHOUT APPROPRIATE AUTHORIZATION. <Electronically signed in Other Vendor System> SIGNED BY: South Pate MD 08/03/172322 Initial ED EKG: normal sinus rhythm, LBBB, 1ST DEGREE AV BLOCK Prior EKG: unchanged Hand-Off Endorsed To: Rubin Falcon MD Endorsed Time: 54 Pending: labs Comments: Patient Name: YESSY LUGO Location: [facility] Date of : [birth year] Unit Number: [id number] Sex: F Age: 67 ORDERING PHYSICIAN: Sarai Neely MD SERVICE DATE: 07/29/17 EXAM TYPE: CARD - DIPYRIDAMOLE STRESS W/NUC IMAG Clinical Diagnosis: Abnormal ECG; Chest Pain Sanforizer: Star Laura IV DIPYRIDAMOLE INFUSED: 60 mg IV AMINOPHYLLINE INFUSED: 125 mg PATIENT WEIGHT: 280 lbs INTERPRETATION: The patient's baseline EKG showed left bundle branch block at 62 BPM. Baseline B/P 132/80. The patient received 60 mg of dipyridamole infused intravenously over a 4 minute period. TC99M Myoview was injected after dipyridamole infusion. The patient complained of dyspnea; chest pressure. There were no EKG changes seen following pharmacologic infusion. Arrhythmias: None IMPRESSION: The test was supervised by the interpreting Electrical Assembly Supervisor, who was in attendance during the entire test. No EKG evidence of stress induced myocardial ischemia. See separately dictated Nuclear Report. DICTATED BY: Sarai Neely MD DATE/TIME DICTATED:07/29/171109 HEADER MACHINE OPERATOR:LEONID DATE/TIME TRANSCRIBED:07/30/171002 CONFIDENTIAL, DO NOT COPY WITHOUT APPROPRIATE AUTHORIZATION. PATIENT: YESSY LUGO PRESENT AGE: 67 PATIENT ACCOUNT NO: [id number] : [birth year] LOCATION: [facility] [place] [facility] ORDERING PHYSICIAN: Sarai Neely MD SERVICE DATE: 07/29/17 EXAM TYPE: NUC - MYOCARDIAL PERFUSION IMAGING PERSANTINE STRESS AND RESTING SPECT MYOCARDIAL PERFUSION IMAGING STUDY WITH GATED SPECT IMAGES: CLINICAL INDICATION: Chest pain, hypertension. PROCEDURE: Regional myocardial perfusion was assessed using a 2 day protocol. Stress images were obtained on 07/29/2017 following the intravenous administration of 43.2 mCi Tc 99m Myoview. Stress consisted of 60 mg Persantine given intravenously. Following the sestamibi injection, 125 mg aminophylline was given intravenously. Rest images were obtained 07/30/2017 following the intravenous administration of 45.2 mCi Technetium 99m Myoview. Single photon emission tomographic (SPECT) images were obtained. SPECT images were acquired in a 64 x 64 matrix of 64 projections over 180 degrees. These were reconstructed into standard short axis, horizontal and vertical long axis cardiac projections. FINDINGS: The post stress images demonstrate the left ventricular chamber to be normal in size. There is mildly decreased activity in the anteroapical and apical and inferior hamlin likely due to attenuation by adjacent breast soft tissues, and this is visible on review of the raw acquired projections. No definite regions of abnormally decreased activity are visualized. The resting images also demonstrate homogeneous distribution of activity in the left ventricular myocardium, and are not significantly changed from the post stress images. The images were obtained using a gated SPECT technique, which permits visualization of wall motion and calculation of the left ventricular ejection fraction. No left ventricular wall motion abnormalities are noted on either the stress or resting study. The calculated left ventricular ejection fraction is 62% on the stress study. No previous study is available for comparison. IMPRESSION: Normal Persantine stress and resting myocardial perfusion study with normal left ventricular wall motion and ejection fraction. DICTATED BY: Kevin Munoz MD DATE/TIME DICTATED:07/30/171653 HEADER MACHINE OPERATOR:MELITON DATE/TIME TRANSCRIBED:07/30/171653 CONFIDENTIAL, DO NOT COPY WITHOUT APPROPRIATE AUTHORIZATION. <Electronically signed in Other Vendor System> SIGNED BY: Kevin Munoz MD [id number] (Ace Hendrix) Departure Departure Condition: Stable Clinical Impression Primary Impression: Dyspnea Qualifiers: Dyspnea type: unspecified Qualified Code: R06.00 - Dyspnea, unspecified Referrals: Etelvina Guerrier APRN (PCP/Family) Additional Instructions: Continue TO use prior inhaler 2 puffs every 4-6 hours as needed for shortness of breath. Cheratussin for cough. This may cause drowsiness. Follow-up with her primary care doctor. Monitor symptoms return with any concerns. Departure Forms: Customer Survey General Discharge Information Prescriptions: Current Visit Scripts Codeine Phosphate/Guaifenesi (Cheratussin AC Syrup) 10 ML PO Q6H PRN COUGH #240 ML (Ace Hendrix) Departure Disposition: HOME OR SELF CARE PA/PRETZEL COOKER Co-Sign Statement Statement: ED Attending supervision documentation- [X] I saw and evaluated the patient. I have also reviewed all the pertinent lab results and diagnostic results. I agree with the findings and the plan of care as documented in the PA's/PRETZEL COOKER's documentation. [X] I have reviewed the ED Record and agree with the PA's/PRETZEL COOKER's documentation. [] Additions or exceptions (if any) to the PAs/PRETZEL COOKER's note and plan are summarized below: [] (Ezekiel MONTALVO,Rubin Castle) Critical Care Note Critical Care Note Critical Care Time: non-applicable (Ace Hendrix)
--- NOTE | 2017-08-03 23:23 | RADIOLOGY REPORT ---
EXAMINATION: CHEST 2 VIEWS CLINICAL INFORMATION: Shortness of breath, cough. COMPARISON: 06/19/2017. TECHNIQUE: PA and lateral views of the chest were obtained. FINDINGS: The cardiac silhouette is stable. The mediastinal and hilar contours are unremarkable. There are neither pleural effusions nor pneumothoraces. There are no consolidations. The osseous structures are unremarkable. IMPRESSION: No evidence for acute disease.
[2017-08-04 00:21] LABS: ABSOLUTE BASOPHIL COUNT 0 /CUMM (0.0-0.2); ABSOLUTE EOSINOPHIL COUNT 0.2 /CUMM (0.0-0.7); ABSOLUTE GRANULOCYTE CT 7.6 /CUMM (1.4-6.5); ABSOLUTE LYMPH COUNT 2.1 /CUMM (1.2-3.4); ABSOLUTE MONOCYTE COUNT 0.9 /CUMM (0.10-0.60); BASOPHIL % 0.1 % (0.0-2.0); EOSINOPHIL % 1.7 % (0-5); HEMATOCRIT 39.3 % (37-47); MEAN CORPUSCULAR HGB 30.2 PG (27.0-31.0); MEAN CORPUSCULAR HGB CONC 33.6 G/DL (33.0-37.0); MEAN CORPUSCULAR VOLUME 89.7 FL (81.0-99.0); MEAN PLATELET VOLUME 7.5 FL (7.4-10.4); PLATELET COUNT 277 /CUMM (130-400); RBC DISTRIBUTION WIDTH 13.6 % (11.5-14.5); RED BLOOD CELL CT 4.39 /CUMM (4.20-5.40); WHITE BLOOD CELL COUNT 10.7 /CUMM (4.8-10.8)
[2017-08-04] MEDS ORDERED: CHERATUSSIN AC118 M1 PO (00:56)
[2017-08-04 01:01] VITALS: BP 127/72
== END 2017-08-04 01:27 ==
LOC: ERH 22:30
PROVIDERS: Physician Assistant Medical
DX: R06.00 Dyspnea, unspecified (principal)
CPT/HCPCS: 1263; 71046; 93005; 93010

== ENCOUNTER 2017-11-05 22:50 | Emergency (ER) | payer OTHER, MEDICARE ==
[~2017-11-05] VITALS: Ht 167.6 cm; Wt 129.3 kg
[~2017-11-05 22:50] MED LIST changes: +AMOXICILLIN250 M3 PO; +CHERATUSSIN AC118 M1 PO; +CIPRO500 M1 PO; +HYDROCORTISO453.6 G2 TOP
--- NOTE | 2017-11-05 23:12 | ED GENERAL ADULT ---
History of Present Illness General Chief Complaint: Allergy Symptoms Stated Complaint: BIBA ALLERGIC REACTION TO MED Source: patient Exam Limitations: no limitations Vital Signs & Intake/Output Vital Signs & Intake/Output Vital Signs Date Time Temp Pulse Resp B/P B/P Pulse O2 O2 Flow FiO2 Mean Ox Delivery Rate 11/05 2315 98.3 81 20 122/83 95 Room Air ED Intake and Output 11/06 0000 07 1200 Intake Total 0 Output Total Balance 0 Intake, Oral 0 Patient 285 lb Weight Allergies Coded Allergies: metronidazole (From FLAGYL) (Mild, hives 10/21/17) Penicillins (RASH 10/21/17) Sulfa (Sulfonamide Antibiotics) (HIVES 10/21/17) adhesive tape (RED, ITCHY 10/21/17) ciprofloxacin (From CIPRO) (HIVES 10/21/17) metoclopramide (From REGLAN) (PER PT DOES NOT REMEMBER 10/21/17) naproxen (PER PT DOESNT REMEMBER 10/21/17) oxycodone (RASH, BLOTCHES 10/21/17) promethazine (RASH, HIVES 10/21/17) sulfamethoxazole (From BACTRIM) (HIVES 10/21/17) sumatriptan (From IMITREX) (PT DOESNT REMEMBER 10/21/17) tramadol (FACIAL EDEMA 10/21/17) trimethoprim (From BACTRIM) (HIVES 10/21/17) Uncoded Allergies: ANTI-HISTAMINES (ACID REFLUX 03/01/15) Reconcile Medications Albuterol Sulfate 2.5 MG/3 ML (0.083 %) VIAL.NEB 1 Vial INH/GRACIE AD PRN ASTHMA (Reported) Albuterol Sulfate (Ventolin Hfa) 90 MCG HFA.AER.AD 1-2 PUF INH AD PRN ASTHMA (Reported) Aspirin (Ecotrin*) 81 MG TABLET.DR 1 TAB PO DAILY HEART/BLOOD (Reported) Atorvastatin Calcium (Lipitor) 10 MG TABLET 1 TAB PO DAILY CHOLESTEROL ( Reported) Budesonide/Formoterol Fumarate (Symbicort 160-4.5 Mcg Inhaler) 160 MCG-4.5 MCG/ ACTUATION HFA.AER.AD 2 PUF INH BID ASTHMA (Reported) Calcium Carb/Vitamin D3/Vit K1 (Calcium + D Soft Chewable Tab) 500 MG CALCIUM-1, 000 UNIT-40 MCG TAB.CHEW 1 TAB PO BID SUPPLEMENT (Reported) Cefuroxime Axetil (Cefuroxime) 500 MG TABLET 1 TAB PO BID uti Ciprofloxacin HCl (Cipro) 500 MG TABLET 1 TAB PO BID URINE/KIDNEY INFECTION Codeine Phosphate/Guaifenesi (Cheratussin AC Syrup) 10 MG-100 MG/5 ML LIQUID 10 ML PO Q6H PRN COUGH Cyanocobalamin (Vitamin B-12) (Vitamin B-12) 2,000 MCG TABLET 1 TAB PO DAILY SUPPLEMENT (Reported) Ferrous Sulfate 325 MG (65 MG IRON) TABLET 1 TAB PO BID SUPPLEMENT (Reported) Hydrocortisone 2.5 % CREAM..G. 1 LADONNA TOP BID BUG BITE apply to affected area(s) Levothyroxine Sodium 175 MCG TABLET 1 TAB PO DAILY THYROID (Reported) Losartan Potassium 50 MG TABLET 1 TAB PO DAILY BP (Reported) Metoprolol Tartrate 50 MG TABLET 1 TAB PO BID HEART (Reported) [employer]-3 Acid Ethyl Esters (Lovaza) 1 GRAM CAPSULE 2 CAP PO BID CHOLESTEROL/ TRIGLYCERIDES (Reported) Pantoprazole Sodium (Protonix) 40 MG TABLET.DR 1 TAB PO DAILY GI (Reported) Polyethylene Glycol 3350 (Miralax) 17 GRAM POWD.PACK 1 PAC PO DAILY GI ( Reported) dissolve in water Triage Nurses Notes Reviewed? yes Onset: Gradual Duration: hour(s): Timing: recent history Injury Environment: home Severity: mild Associated Symptoms: ITCHY RASH ON THIGHS HPI: 67 yo woman h/o uti, history of multiple drug allergies, took cipro this evening after being diagnosed with a UTI and developed itchy rash on legs a few hours later. She notes no dyspnea, chest pain, dizziness, throat swelling. She notes that the rash is only on her thighs. She is otherwise well most of the concerns. Past History Travel History Traveled to [place] past 21 day No Medical History Any Pertinent Medical History? 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 No Review of Systems Review of Systems Constitutional: Reports: no symptoms. EENTM: Reports: no symptoms. Respiratory: Reports: no symptoms. Cardiovascular: Reports: no symptoms. GI: Reports: no symptoms. Genitourinary: Reports: no symptoms. Musculoskeletal: Reports: no symptoms. Skin: Reports: no symptoms. Neurological/Psychological: Reports: no symptoms. Hematologic/Endocrine: Reports: no symptoms. Immunologic/Allergic: Reports: no symptoms. All Other Systems: Reviewed and Negative Physical Exam Physical Exam General Appearance: well developed/nourished, no apparent distress Comments: Review of Systems - except as otherwise noted in HPI Physical Exam Physical Exam General Appearance: well developed/nourished, no apparent distress Head: atraumatic, normal appearance Eyes: Bilateral: normal appearance. Ears, Nose, Throat: normal pharynx, normal ENT inspection Neck: normal inspection, supple, full range of motion Respiratory: normal breath sounds, chest non-tender, no respiratory distress, quiet respiration, lungs clear Cardiovascular: regular rate/rhythm Gastrointestinal: normal bowel sounds, soft, non-tender, no organomegaly Back: normal inspection, normal range of motion Extremities: 10 x 15 cm approximate area of urticaria on her right thigh approximately 10 x 10 cm area of urticaria on her left thigh. No sign of infection. Normal capillary refill, normal range of motion, no edema Neurologic/Psych: no motor/sensory deficits, awake, alert, oriented x 3 Skin: intact, normal color, warm/dry Core Measures ACS in differential dx? No CVA/TIA Diagnosis: No Sepsis Present: No Sepsis Focused Exam Completed? No Progress Differential Diagnoses I considered the following diagnoses in my evaluation of the patient: Allergic reaction versus adverse drug reaction versus urticaria versus other Plan of Care: Current Medications Sig/Jennifer Start time Last Medication Dose Stop Time Status Admin Diphenhydramine HCl 50 MG ONCE ONE 11/05 2344 UNVr (Benadryl) 11/05 2345 Initial ED EKG: none Departure Departure Disposition: HOME OR SELF CARE Condition: Stable Clinical Impression Primary Impression: Urticaria Secondary Impressions: Allergic reaction Referrals: Etelvina Guerrier APRN (PCP/Family) Departure Forms: Customer Survey General Discharge Information Prescriptions: Current Visit Scripts Cefuroxime Axetil (Cefuroxime) 1 TAB PO BID #14 TAB Comments Patient given cefuroxime for her UTI. She was instructed to take this in 2 days after taking Benadryl around the clock for her urticaria. Close follow-up advised Critical Care Note Critical Care Note Critical Care Time: non-applicable
[2017-11-05 23:15] VITALS: BP 122/83
[2017-11-05] MEDS ORDERED: CEFUROXIME500 MG PO (23:40)
[2017-11-16] MEDS ORDERED: KEFLEX250 M1 PO (22:34)
== END 2017-11-05 23:51 ==
LOC: ERH 22:50
DX: L50.9 Urticaria, unspecified (principal); T36.8X5A Adverse effect of other systemic antibiotics, initial encounter

== ENCOUNTER 2017-11-29 11:46 | Emergency (ER) | payer OTHER, MEDICARE ==
[~2017-11-29] VITALS: Ht 167.6 cm; Wt 127.0 kg
[~2017-11-29 11:46] MED LIST changes: +CEFUROXIME500 MG PO
[2017-11-29 12:33] LABS: ABSOLUTE BASOPHIL COUNT 0 /CUMM (0.0-0.2); ABSOLUTE EOSINOPHIL COUNT 0.1 /CUMM (0.0-0.7); ABSOLUTE GRANULOCYTE CT 6.2 /CUMM (1.4-6.5); ABSOLUTE LYMPH COUNT 1.4 /CUMM (1.2-3.4); ABSOLUTE MONOCYTE COUNT 0.6 /CUMM (0.10-0.60); BASOPHIL % 0.3 % (0.0-2.0); EOSINOPHIL % 1.1 % (0-5); GRANULOCYTE % 74.1 % (42.2-75.2); HEMATOCRIT 39.8 % (37-47); MEAN CORPUSCULAR HGB 30.4 PG (27.0-31.0); MEAN CORPUSCULAR HGB CONC 33.9 G/DL (33.0-37.0); MEAN CORPUSCULAR VOLUME 89.6 FL (81.0-99.0); MEAN PLATELET VOLUME 7.4 FL (7.4-10.4); PLATELET COUNT 287 /CUMM (130-400); RBC DISTRIBUTION WIDTH 13.6 % (11.5-14.5); RED BLOOD CELL CT 4.44 /CUMM (4.20-5.40); WHITE BLOOD CELL COUNT 8.4 /CUMM (4.8-10.8)
--- NOTE | 2017-11-29 14:55 | CT SCAN REPORT ---
EXAMINATION: CT ABDOMEN AND PELVIS WITH CONTRAST CLINICAL INFORMATION: Abdominal pain, colitis COMPARISON: 12/11/2015 CT scan TECHNIQUE: Multidetector volumetric imaging was performed of the abdomen and pelvis following IV administration of 95 mL of Optiray 320 intravenous contrast. Sagittal and coronal reformatted images were obtained on the technologist's workstation. DLP: 1569.40 mGy-cm FINDINGS: LUNG BASES: The visualized lung bases are unremarkable. LIVER, GALLBLADDER, AND BILIARY TREE: The liver is normal in size, shape, and attenuation. No focal hepatic lesion or biliary ductal dilatation is present. The gallbladder is absent, prior cholecystectomy. PANCREAS: Unremarkable. SPLEEN: Unremarkable. ADRENAL GLANDS: Unremarkable. KIDNEYS AND URETERS: The kidneys are normal in size, shape, and attenuation. No hydronephrosis, hydroureter, or calculi seen. No perinephric stranding. BLADDER: The urinary bladder is partially full and unremarkable. GASTROINTESTINAL TRACT: The stomach, duodenum and small bowel loops are unremarkable. Extensive diverticular disease of the colon noted. There is no CT evidence of acute diverticulitis. There is a 1.8 cm stranding in the mid sigmoid mesocolon, surrounding a fat density. This represents epiploic appendagitis. No abnormal thickening of the wall of adjacent colon. The inflammatory change in the mesocolon does not extend to the adjacent diverticuli. The appendix is unremarkable. No free intra-abdominal air or fluid. ABDOMINAL WALL: Post hernia repair changes of the anterior abdominal wall noted. LYMPH NODES: Normal. VASCULAR: Unremarkable. PELVIC VISCERA: The uterus is absent. There is a 2.5 cm soft tissue mass in the right side of the pelvis, likely representing the right ovary. Correlation with surgical history for oophorectomy is suggested. The left ovary is not seen. OSSEOUS STRUCTURES: Mild degenerative changes of the intervertebral disc spaces of the lumbar spine are noted, fairly similar to the comparison exam. There is a 1.6 cm hemangioma of L2 vertebral body. No aggressive bony lesion. IMPRESSION: Findings suggestive of epiploic appendagitis in mid sigmoid colon. Colon diverticulosis without evidence of acute diverticulitis.
--- NOTE | 2017-11-29 15:47 | ED GI/GU/ABDOMINAL COMPLAINT ---
History of Present Illness General Chief Complaint: Abdominal Pain/Flank Pain Stated Complaint: PER PT "COLON AND BLADDER PAIN" Source: patient Exam Limitations: no limitations Allergies Coded Allergies: metronidazole (From FLAGYL) (Mild, hives 10/21/17) Penicillins (RASH 10/21/17) Sulfa (Sulfonamide Antibiotics) (HIVES 10/21/17) adhesive tape (RED, ITCHY 10/21/17) ciprofloxacin (From CIPRO) (HIVES 10/21/17) metoclopramide (From REGLAN) (PER PT DOES NOT REMEMBER 10/21/17) naproxen (PER PT DOESNT REMEMBER 10/21/17) oxycodone (RASH, BLOTCHES 10/21/17) promethazine (RASH, HIVES 10/21/17) sulfamethoxazole (From BACTRIM) (HIVES 10/21/17) sumatriptan (From IMITREX) (PT DOESNT REMEMBER 10/21/17) tramadol (FACIAL EDEMA 10/21/17) trimethoprim (From BACTRIM) (HIVES 10/21/17) Uncoded Allergies: ANTI-HISTAMINES (ACID REFLUX 03/01/15) Reconcile Medications Albuterol Sulfate (Ventolin Hfa) 90 MCG HFA.AER.AD 2 PUF INH Q4H PRN WHEEZING (Reported) Aspirin (Ecotrin*) 81 MG TABLET.DR 1 TAB PO QAM HEART/BLOOD (Reported) Atorvastatin Calcium (Lipitor) 10 MG TABLET 1 TAB PO DAILY CHOLESTEROL ( Reported) Budesonide/Formoterol Fumarate (Symbicort 160-4.5 Mcg Inhaler) 160 MCG-4.5 MCG/ ACTUATION HFA.AER.AD 2 PUF INH TID PRN SOB (Reported) Calcium Carbonate/Vitamin D3 (Calcium 600 + Vit D 400 Softgl) 600 MG-400 CAPSULE 1 SGL PO BID SUPPLEMENT (Reported) Cyanocobalamin (Vitamin B-12) (Vitamin B-12) 2,000 MCG TABLET 1 TAB PO QAM SUPPLEMENT (Reported) Ferrous Sulfate 325 MG (65 MG IRON) TABLET 1 TAB PO BID SUPPLEMENT (Reported) Hydrocortisone 2.5 % CREAM..G. 1 LADONNA TOP BID BUG BITE apply to affected area(s) Levothyroxine Sodium 175 MCG TABLET 1 TAB PO DAILY THYROID (Reported) Losartan Potassium 50 MG TABLET 1 TAB PO QAM BP (Reported) Metoprolol Tartrate 50 MG TABLET 1 TAB PO BID HEART (Reported) Nitrofurantoin Monohyd/M-Cryst (Macrobid 100 MG Capsule) 100 MG CAPSULE 1 CAP PO BID UTI with food [place]-3 Acid Ethyl Esters (Lovaza) 1 GRAM CAPSULE 2 CAP PO BID CHOLESTEROL/ TRIGLYCERIDES (Reported) Pantoprazole Sodium (Protonix) 40 MG TABLET.DR 1 TAB PO DAILY GI (Reported) Polyethylene Glycol 3350 (Miralax) 17 GRAM POWD.PACK 1 PAC PO DAILY PRN CONSTIPATION (Reported) dissolve in water Triage Note: PT FROM HOME C/O "LOOSE STOOL" WITH HX OF DIVERTIULOSIS "FLARE UP" PER PT. PT RECENTLY FINISHED CIPRO A FEW DAYS PRIOR FOR UTI. VSS. PT HAS NAUSEA, LOWER ABD PAIN THAT IS NON RADIATING, 8/10 PAIN. Triage Nurses Notes Reviewed? yes ? N Is pt currently ? No Duration: day(s): Timing: recent history Quality/Severity: moderate, severe Radiation: no radiation Activities at Onset: none HPI: 67YO FEMALE WITH PMH OF COLITIS, DIVERTICULITIS, INCONTINENCE, RECURRENT UTI, HTN, ASTHMA, ARTHRITIS AND SEVERAL ABDOMINAL SURGERIES C/O OF LLQ ABDOMINAL PAIN. PT STATES THAT PAIN STARTED ABOUT 2 DAYS AGO AND HAS INCREASED IN INTENSITY SINCE THEN. PAIN IS MADE WORSE BEFORE DEFECATION AND WHILE STRAINING, THEN LINGERS FOR A WHILE AFTER BOWEL MOVEMENT. PT ALSO NOTED DIARRHEA, DENIES ANY BLOODY OR TARRY STOOLS. PT BELIEVES THIS COULD BE A FLARE UP OF HER COLITIS. PT IS ALSO C/O OF RLQ PAIN THAT SHE IS ATTRIBUTING TO A UTI. PT FINISHED ABX COURSE ~3 DAYS AGO, BUT THE RLQ PAIN HAS BEEN PERSISTNAT. PT NOTED SOME LIGHTHEADEDNESS AND NAUSEA, BUT DENIES ANY VOMITING. DENIES FEVERS, CHILLS, CHEST PAIN, SHORTNESS OF BREATHE. (Lon Crews) Vital Signs & Intake/Output Vital Signs & Intake/Output Vital Signs Date Time Temp Pulse Resp B/P B/P Pulse O2 O2 Flow FiO2 Mean Ox Delivery Rate 11/29 1630 97.8 88 18 132/88 98 Room Air 11/29 1200 98.2 100 18 145/89 95 Room Air (Ezequiel MONTALVO,[facility]) Past History Travel History Traveled to [place] past 21 day No Medical History Any Pertinent Medical History? 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 No (Lon Crews) Review of Systems Review of Systems Constitutional: Reports: see HPI. EENTM: Reports: no symptoms. Respiratory: Reports: no symptoms. Cardiovascular: Reports: no symptoms. GI: Reports: see HPI, abdominal pain. Genitourinary: Reports: no symptoms. Musculoskeletal: Reports: no symptoms. Skin: Reports: no symptoms. Neurological/Psychological: Reports: no symptoms. Hematologic/Endocrine: Reports: no symptoms. Immunologic/Allergic: Reports: no symptoms. All Other Systems: Reviewed and Negative (Lon Crews) Physical Exam Physical Exam General Appearance: well developed/nourished, no apparent distress, alert, awake , obese Head: atraumatic, normal appearance Eyes: Bilateral: normal appearance, PERRL, EOMI. Ears, Nose, Throat, Mouth: hearing grossly normal Neck: normal inspection, supple, full range of motion Respiratory: normal breath sounds, chest non-tender, no respiratory distress Cardiovascular: regular rate/rhythm Gastrointestinal: normal bowel sounds, soft, distention, tenderness, WELL HEALED SCAR ACROSS RIGHT HALF OF ABDOMEN SOFT, TENDER TO PAPLAPTION OVER LLQ, RLQ WITHOUT RADIATION Rectal: deferred Back: normal inspection Extremities: normal range of motion Neurologic/Psych: awake, alert, oriented x 3 Skin: intact, normal color, warm/dry Core Measures ACS in differential dx? No Sepsis Present: No Sepsis Focused Exam Completed? No (Lon Crews) Progress Differential Diagnosis: diverticulitis, gastritis, hernia, ischemic bowel, kidney stone, SBO, UTI/pyelo Diagnostic Imaging: Viewed by Me: CT Scan. Discussed w/RAD: CT Scan. Radiology Impression: PATIENT: YESSY LUGO PRESENT AGE: 67 PATIENT ACCOUNT NO: [id number] : 48 LOCATION: [facility] ORDERING PHYSICIAN: Ace MARSHALL SERVICE DATE: 11/29/17 EXAM TYPE: CAT - CT ABD & PELVIS W IV CONTRAST EXAMINATION: CT ABDOMEN AND PELVIS WITH CONTRAST CLINICAL INFORMATION: Abdominal pain, colitis COMPARISON: 12/11/2015 CT scan TECHNIQUE: Multidetector volumetric imaging was performed of the abdomen and pelvis following IV administration of 95 mL of Optiray 320 intravenous contrast. Sagittal and coronal reformatted images were obtained on the technologist's workstation. DLP: 1569.40 mGy-cm FINDINGS: LUNG BASES: The visualized lung bases are unremarkable. LIVER, GALLBLADDER, AND BILIARY TREE: The liver is normal in size, shape, and attenuation. No focal hepatic lesion or biliary ductal dilatation is present. The gallbladder is absent, prior cholecystectomy. PANCREAS: Unremarkable. SPLEEN: Unremarkable. ADRENAL GLANDS: Unremarkable. KIDNEYS AND URETERS: The kidneys are normal in size, shape, and attenuation. No hydronephrosis, hydroureter, or calculi seen. No perinephric stranding. BLADDER: The urinary bladder is partially full and unremarkable. GASTROINTESTINAL TRACT: The stomach, duodenum and small bowel loops are unremarkable. Extensive diverticular disease of the colon noted. There is no CT evidence of acute diverticulitis. There is a 1.8 cm stranding in the mid sigmoid mesocolon, surrounding a fat density. This represents epiploic appendagitis. No abnormal thickening of the wall of adjacent colon. The inflammatory change in the mesocolon does not extend to the adjacent diverticuli. The appendix is unremarkable. No free intra-abdominal air or fluid. ABDOMINAL WALL: Post hernia repair changes of the anterior abdominal wall noted. LYMPH NODES: Normal. VASCULAR: Unremarkable. PELVIC VISCERA: The uterus is absent. There is a 2.5 cm soft tissue mass in the right side of the pelvis, likely representing the right ovary. Correlation with surgical history for oophorectomy is suggested. The left ovary is not seen. OSSEOUS STRUCTURES: Mild degenerative changes of the intervertebral disc spaces of the lumbar spine are noted, fairly similar to the comparison exam. There is a 1.6 cm hemangioma of L2 vertebral body. No aggressive bony lesion. IMPRESSION: Findings suggestive of epiploic appendagitis in mid sigmoid colon. Colon diverticulosis without evidence of acute diverticulitis. DICTATED BY: Loco Herring MD DATE/TIME DICTATED:11/29/171433 DIRECTOR MARKETING ANALYTICS:MELITON DATE/TIME TRANSCRIBED:11/29/171433 CONFIDENTIAL, DO NOT COPY WITHOUT APPROPRIATE AUTHORIZATION. <Electronically signed in Other Vendor System> SIGNED BY: Loco Herring MD 11/29/17 1455 Initial ED EKG: normal sinus rhythm, rate (89), LBBB (Lon Crews) Plan of Care: Orders Procedure Date/time Status Regular Diet 11/29 D Active Add-on Test (ER Only) 11/29 1511 Active Add-on Test (ER Only) 11/29 1442 Active CULTURE,URINE 11/29 1438 Active URINALYSIS 11/29 1156 Complete TROPONIN LEVEL 11/29 1156 Complete LIPASE 11/29 1156 Complete COMPREHENSIVE METABOLIC PANEL 11/29 1156 Complete CBC WITHOUT DIFFERENTIAL 11/29 1156 Complete EKG 11/29 1156 Active Laboratory Tests 11/29/17 1438: Urine Color YEL, Urine Clarity HAZY H, Urine pH 6.0, Ur Specific [place] 1.010, Urine Protein NEG, Urine Ketones NEG, Urine Nitrite POS H, Urine Bilirubin NEG, Urine Urobilinogen 0.2, Ur Leukocyte Esterase MOD H, Ur Microscopic SEDIMENT EXAMINED, Urine RBC RARE, Urine WBC 10-15 H, Ur Epithelial Cells MANY H, Urine Bacteria MANY H, Urine Mucus RARE, Urine Hemoglobin TRACE-INTACT, Urine Glucose NEG 11/29/17 1221: Anion Gap 12, Estimated GFR > 60, BUN/Creatinine Ratio 27.1 H, Glucose 116 H, Calcium 9.3, Total Bilirubin 1.2, AST 20, ALT 27, Alkaline Phosphatase 76, Troponin I < 0.01, Total Protein 6.4, Albumin 3.8, Globulin 2.6, Albumin/ Globulin Ratio 1.5, Lipase 45, CBC w Diff NO MAN DIFF REQ, RBC 4.44, MCV 89.6, MCH 30.4, MCHC 33.9, RDW 13.6, MPV 7.4, Gran % 74.1, Lymphocytes % 17.1 L, Monocytes % 7.4, Eosinophils % 1.1, Basophils % 0.3, Absolute Granulocytes 6.2, Absolute Lymphocytes 1.4, Absolute Monocytes 0.6, Absolute Eosinophils 0.1, Absolute Basophils 0 Microbiology 11/29 1438 URINE ROUT: Urine Culture - RECD (Ezequiel MONTALVO,[facility]) Departure Departure Disposition: HOME OR SELF CARE Condition: Stable Clinical Impression Primary Impression: Urinary tract infection Secondary Impressions: Abdominal pain, Epiploic appendagitis Referrals: Etelvina Guerrier APRN (PCP/Family) Additional Instructions: Take Macrobid as prescribed. Follow-up with your primary care doctor. Follow- up with director executive communications. Please go over all results of today's visit with your primary care doctor. Contact your primary care doctor to let them know you were here in the emergency room. There may be nonspecific findings which may not be related to your visit today here in the emergency room but may require further evaluation and chronic monitoring by your primary care doctor. If you had a laceration today the chance of foreign body always remains. You should follow-up with your primary care doctor for recheck in 3-5 days for a wound check. If you had an x-ray done there is a chance that a fracture could have been missed on initial read and you should follow-up with your primary care doctor for repeat x-rays if symptoms persist. If your blood pressure was elevated here in the emergency room please have rechecked by [facility] primary care doctor within the next 48. If you were prescribed a narcotic here in the emergency room or any type of controlled substances you're not allowed to drive while taking this medication or operate any type of heavy machinery. Narcotics can make you feel lightheaded dizziness nausea and can cause constipation. You may need to picking belt operator a stool softener. Thank you for choosing [facility] emergency room. Please return to the emergency room immediately if you have any other concerns worsening of symptoms. Departure Forms: Customer Survey General Discharge Information Prescriptions: Current Visit Scripts Nitrofurantoin Monohyd/M-Cryst (Macrobid 100 MG Capsule) 1 CAP PO BID #14 CAP with food Comments 11/29/2017 9:46:45 PM Patient looks well. Patient is clinically in no distress. Nontoxic-appearing. Resting comfortably in room. Follow-up with PCP. Follow-up with GI doctor. Return if any other concerns worsening symptoms. No acute abdomen. (Lon Crews) PA/ADMINISTRATIVE COURT JUSTICE Co-Sign Statement Statement: ED Attending supervision documentation- [x] I saw and evaluated the patient. I have also reviewed all the pertinent lab results and diagnostic results. I agree with the findings and the plan of care as documented in the PA's/ADMINISTRATIVE COURT JUSTICE's documentation. [] I have reviewed the ED Record and agree with the PA's/ADMINISTRATIVE COURT JUSTICE's documentation. [] Additions or exceptions (if any) to the PAs/ADMINISTRATIVE COURT JUSTICE's note and plan are summarized below: 67-year-old female presents with abdominal pain. The patient's workup reveals epiploic appendicitis with normal labs. The patient does have a UTI. We will start her on antibiotics. Otherwise the patient is no distress. Follow-up with PCP. (Ezequiel MONTALVO,[place])
[2017-11-29] MEDS ORDERED: MACROBID 100 M100 MG PO (15:48)
[2017-11-29] MEDS ORDERED: CALCIUM 600 +1 EAC4 PO (16:01)
[2017-11-29 16:30] VITALS: BP 132/88
== END 2017-11-29 16:38 ==
LOC: ERH 11:46
PROVIDERS: Physician Assistant Medical
DX: N39.0 Urinary tract infection, site not specified (principal)
CPT/HCPCS: 74177; 81001; 87086; 93005; 93010; 96374; J2405